=== PATIENT | male | born 1945 | race Caucasian/White ===

== ENCOUNTER 2021-01-17 17:44 | Inpatient (IN) | payer MEDICARE, SELFPAY ==
--- NOTE | ~2021-01-17 | CT_ITS ---
EXAMINATION: CT HEAD WITHOUT CONTRAST CLINICAL INFORMATION: Status post fall COMPARISON: None TECHNIQUE: Contiguous axial imaging was performed from the skull base to vertex without intravenous administration of contrast. This CT examination was performed using dose optimization techniques as appropriate, variously including the following: *Automated exposure control *Adjustment of mA and/or kV according to patient size (this includes techniques or standardized protocols for targeted exams where dose is matched to indication/reason for exam; i.e. extremities or head) *Use of iterative reconstruction technique DLP: 741 mGy-cm FINDINGS: There is no evidence of acute intracranial hemorrhage or territorial infarction. No abnormal mass effect or midline shift is seen. Glass to white matter differentiation is well preserved. No extra-axial fluid collections are identified. There is a mild global volume loss with proportionate dilatation of the ventricles and cortical sulci. Patchy low-attenuation changes are noted in the bilateral periventricular white matter, likely representing sequela of chronic microangiopathy. The patient is status post bilateral lens extraction. Osseous calvarium is intact. No evidence of significant calvarial soft tissue swelling or hematoma.. The mastoid air cells and visualized portions of the paranasal sinuses are well aerated. CT/CT head/brain wo con IMPRESSION: No evidence of acute intracranial abnormality. Specifically, there is no evidence of acute intracranial hemorrhage or acute territorial infarction. 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
--- NOTE | ~2021-01-17 | XR_ITS ---
EXAMINATION: XR CHEST CLINICAL INFORMATION: Syncope COMPARISON: 08/25/2015 TECHNIQUE: 2 AP views of the chest was obtained. FINDINGS: Diffuse coarse interstitial markings appear increased from the prior study 08/25/2015. No focal consolidation. No pleural effusion or pneumothorax. Cardiac silhouette remains enlarged. Sternal wires and mediastinal vascular clips are seen. Unchanged single lead pacer/AICD. XR/XR chest 1V IMPRESSION: Diffuse coarse interstitial markings are increased from prior study. These could reflect worsened bronchitis, pulmonary vascular congestion, or interstitial pneumonitis.
--- NOTE | ~2021-01-17 | NM_ITS ---
Myocardial perfusion study Indication: NSTEMI with prior ischemic cardiomyopathy to evaluate for myocardial infarction Technique: The patient was brought in for a Lexiscan perfusion study on 01/21/2021. Patient performed low-level exercise and was injected 0.4 mg of Lexiscan intravenously. Within a minute of injection, 25 mCi of sestamibi was given intravenously. Images were obtained using the SPECT gamma camera interlaced with the gating device. Images were obtained in supine position. Resting perfusion study was performed on 01/20/2021. Patient was administered 25 mCi of sestamibi intravenously at rest. Images were then obtained in supine position. Images obtained with and without CT attenuation. Total DLP 100 mGy-cm. Images were processed with the software and compared side to side in short axis, horizontal long axis and vertical long axis views. Findings: The stress perfusion study showed nonattenuated images show large area of absent uptake in the mid anterior, distal anterior and apex of the LV myocardium as well as severely reduced uptake in the basal anterior. There is also absent uptake in the basal and apical anteroseptal wall of the LV myocardium. Is also mildly to moderately reduced uptake in the inferior wall of the LV myocardium. Attenuation corrected images show a large area of absent mid, distal anterior, apex, distal lateral and basal anteroseptal wall of the LV myocardium. There is improved uptake in the mid inferior wall with mildly the basal inferior wall of the LV myocardium.. The gated study shows severely reduced LV systolic function with calculated LVEF of 25%. LV cavity is moderately dilated size. The gated study shows absent anterior and apical wall thickening and contraction of segments. Resting study shows marginally improved uptake in the basal anterior as well as septum of the LV myocardium. Gating at rest reveals anterior wall motion abnormality with ejection fraction at 25%. The findings are consistent with large area of possible infarct of the mid to distal anterior and apical wall of the LV myocardium involving the distal and basal anteroseptal wall of the LV myocardium with heidi-infarct ischemia. In LAD territory.. NM/NM clifford perf SPECT rest & str Impression: 1. 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 Gated LVEF is 25% 3. Transient ischemic dilatation present EKG nondiagnostic for ischemia
[2021-01-17 17:53] VITALS: BP 102/50; BP 99/67; PULSE 54; RESP 15; TEMP 36.6; O2SAT 99; BMI 29.5
--- NOTE | 2021-01-17 18:04 | ED_ITS ---
HPI - Syncope General Chief Complaint: Dizziness Stated Complaint: near syncope Time Seen by Provider: 01/17/21 18:04 Source: patient, family and EMS Limitations: no limitations History of Present Illness HPI narrative: Patient is 75 years old with history of cardiac bypass surgery AICD placed more than 10 years ago history of cardiomyopathy, CHF COPD, diabetes, peripheral vascular disease, hypertension, depression do not eat much today was feeling weak and tired while sitting patient felt a shock like feeling in the AICD hand iced the floor and had a syncope episode and next thing he was on the floor patient's [employer] NE[employer]AL[employer]ER was in the same room and she found him on the floor no significant head injury no other injuries patient denies any chest pain or shortness of breath Related Data Home Medications Medication Instructions Recorded Confirmed aspirin 1 tab PO QAM 01/17/21 01/17/21 clopidogrel 1 tab PO QAM 01/17/21 01/17/21 fluoxetine 1 cap PO QAM 01/17/21 01/17/21 metoprolol succinate 25 mg PO DAILY 01/17/21 01/17/21 rosuvastatin 1 tab PO QAM 01/17/21 01/17/21 Allergies Allergy/AdvReac Type Severity Reaction Status Date / Time No Known Allergies Allergy Unverified 04/24/20 15:47 [No Known Allergies*] Review of Systems Review of Systems: Constitutional : No Weight loss, No Fever, No Chills ENT/Mouth : No sore throat, No Rhinorrhea Eyes: No Eye Pain, No Swelling Cardiovascular : No Chest Pain, no palpitations Respiratory : No Cough, No Sputum, no shortness of breath Gastrointestinal : no Nausea, No Vomiting, No Diarrhea, No abdominal Pain, no black stools Genitourinary : No Dysuria, No Urinary Frequency Musculoskeletal : No joint pain, No Myalgias, No Joint Swelling Skin : No Skin Lesions, No rash Neuro : ++ Weakness, No Numbness, No Dizziness, No Headache Psych : No Anxiety/Panic, No Depression Heme/Lymph: No Bruising, No Lymphadenopathy Endocrine : No Polyuria, No Polydipsia All other systems reviewed and are negative [facility] Past Medical History Medical History (Updated 01/17/21 @ 23:32 by Ivan Martini MD) A-fib CHF (congestive heart failure) COPD (chronic obstructive pulmonary disease) Depression HTN (hypertension) with goal to be determined Peripheral vascular disease Surgical History (Updated 01/17/21 @ 18:53 by Ivan Martini MD) AICD (automatic cardioverter/defibrillator) present Hx of CABG Social History Social History Alcohol intake: never Patient Tobacco Use Status: Never used Tobacco Use of substances other than those prescribed or required for medical reasons: No Advance Directives: No Advance Directives Information Provided: No Physical Exam Vital Signs: Vital Signs: Last Vital Signs Temp 97.8 F 01/17/21 22:13 Pulse 73 01/17/21 22:13 Resp 20 01/17/21 22:13 BP 112/53 L 01/17/21 22:13 Pulse Ox 100 01/17/21 22:13 Oxygen Flow Rate 2 01/17/21 17:53 Body Mass Index 24.6 Appearance: Alert. Oriented X3. No acute distress. Eyes: PERRLA, No Nystagmus ENT: Pharynx normal. Oral Mucosa moist Neck: Normal inspection. Neck supple. CVS: irregular heart rate and rhythm. Pulses normal. Respiratory: No respiratory distress. Equal air entry bilateral, no wheezing/rales/rhonchi Abdomen: Soft and nontender. Bowel sounds are present, no mass palpable, no CVA tenderness Skin: Skin warm and dry. Normal skin color. Normal skin turgor. Extremities: No lower extremity edema. No calf tenderness Neuro: Oriented X 3. No motor deficit. No sensory deficit.No cerebellar signs , cranial nerves II-XII intact MDM - Syncope MDM Narrative Medical decision making narrative: Patient is syncope episode is firing of the AICD with new onset AFib in patient denied any chest pain initial troponin was 46.6 repeat 359.6 likely from AICD firing and AFib patient denies any chest pain case discussed with Dr. Benson orderly continue heparin drip for now Patient has significant deltoid are increase in troponin likely from AFib and shock received at home. Patient denies any chest pain. Will continue heparin drip for now orderly to follow Lab Data Attestation: I reviewed the patient's lab results. Result diagrams: 01/17/21 20:24 01/17/21 18:31 Labs: Lab Results 01/17/21 01/17/21 01/17/21 Range/Units 18:31 18:31 18:31 WBC 7.1 (4.8-10.8) X10*3/uL RBC 3.65 L (4.60-5.80) X10*6/uL Hgb 10.5 L (14.0-18.0) g/dl Hct 34.0 L (42-52) % MCV 93.2 (80-98) fL MCH 28.8 (27.0-33.0) pg MCHC 30.9 L (31.0-36.0) g/dl RDW 16.0 (11.0-16.0) % Plt Count 166 (160-400) X10*3/uL MPV 10.1 (9.4-12.4) fL Immature Gran % (Auto) 0.6 H (0.0-0.4) % Neut % (Auto) 73.9 H (45-73) % Lymph % (Auto) 12.8 L (20-40) % Ellis % (Auto) 9.7 (2-11) % Eos % (Auto) 2.4 (0-4) % Baso % (Auto) 0.6 (0-2) % Lymph # (Auto) 0.9 L (1.2-4.9) X10*3/uL Ellis # (Auto) 0.7 (0.1-1.2) X10*3/uL Eos # (Auto) 0.2 (0.0-0.4) X10*3/uL Baso # (Auto) 0.0 (0.0-0.2) X10*3/uL Abs Immat Gran (auto) 0.04 H (0.00-0.03) X10*3/uL Absolute Neuts (auto) 5.3 (2.0-8.3) X10*3/uL Absolute Nucleated RBC 0.020 H (0.0-0.012) X10*3/uL Nucleated RBC % (auto) 0.3 H (0.0-0.2) /100WBC PT 15.7 H (10.8-13.0) SEC INR 1.3 H (0.9-1.1) APTT 32.1 (24.1-38.0) SEC PTT (Heparin Protocol) (53-77.9) SEC Sodium 139 (135-145) mmol/L Potassium 4.3 (3.3-5.1) mmol/L Chloride 109 H (96-108) mmol/L Carbon Dioxide 21 L (22-29) mmol/L Anion Gap 13 (12-20) BUN 32 H (9-16) mg/dL Creatinine 1.78 H (0.5-1.4) mg/dL Estim Creat Clear Calc 38.6 Estimated GFR 37 Random Glucose 208 H (60-115) mg/dL Calcium 8.4 (8.4-10.2) mg/dL Total Bilirubin (0.0-1.0) mg/dL Direct Bilirubin (0.0-0.5) mg/dL AST (5-37) U/L ALT (0-40) U/L Alkaline Phosphatase (39-117) U/L Troponin I High Sens (<3.5-35.0) ng/L Total Protein (6.5-8.0) g/dL Albumin (3.5-5.0) g/dL Urine Color Urine Appearance Urine pH (5.0-8.0) Ur Specific [place] (1.005-1.025) Urine Protein (NEG-TRACE) MG/DL Urine Glucose (UA) (NEG) MG/DL Urine Ketones (NEG) MG/DL Urine Blood (NEG) Urine Nitrite (NEG) Ur Leukocyte Esterase (NEG) Urine RBC (0) /HPF Urine WBC (0-4) /HPF Ur Squamous Epith Cells /LPF Urine Bacteria /LPF COVID-19 ([facility]) (Negative) COVID-19 Clin Com 01/17/21 01/17/21 01/17/21 Range/Units 18:31 18:31 18:31 WBC (4.8-10.8) X10*3/uL RBC (4.60-5.80) X10*6/uL Hgb (14.0-18.0) g/dl Hct (42-52) % MCV (80-98) fL MCH (27.0-33.0) pg MCHC (31.0-36.0) g/dl RDW (11.0-16.0) % Plt Count (160-400) X10*3/uL MPV (9.4-12.4) fL Immature Gran % (Auto) (0.0-0.4) % Neut % (Auto) (45-73) % Lymph % (Auto) (20-40) % Ellis % (Auto) (2-11) % Eos % (Auto) (0-4) % Baso % (Auto) (0-2) % Lymph # (Auto) (1.2-4.9) X10*3/uL Ellis # (Auto) (0.1-1.2) X10*3/uL Eos # (Auto) (0.0-0.4) X10*3/uL Baso # (Auto) (0.0-0.2) X10*3/uL Abs Immat Gran (auto) (0.00-0.03) X10*3/uL Absolute Neuts (auto) (2.0-8.3) X10*3/uL Absolute Nucleated RBC (0.0-0.012) X10*3/uL Nucleated RBC % (auto) (0.0-0.2) /100WBC PT (10.8-13.0) SEC INR (0.9-1.1) APTT (24.1-38.0) SEC PTT (Heparin Protocol) (53-77.9) SEC Sodium (135-145) mmol/L Potassium (3.3-5.1) mmol/L Chloride (96-108) mmol/L Carbon Dioxide (22-29) mmol/L Anion Gap (12-20) BUN (9-16) mg/dL Creatinine (0.5-1.4) mg/dL Estim Creat Clear Calc Estimated GFR Random Glucose (60-115) mg/dL Calcium (8.4-10.2) mg/dL Total Bilirubin 0.6 (0.0-1.0) mg/dL Direct Bilirubin 0.4 (0.0-0.5) mg/dL AST 71 H (5-37) U/L ALT 44 H (0-40) U/L Alkaline Phosphatase 249 H (39-117) U/L Troponin I High Sens 46.6 H* (<3.5-35.0) ng/L Total Protein 7.1 (6.5-8.0) g/dL Albumin 3.5 (3.5-5.0) g/dL Urine Color Urine Appearance Urine pH (5.0-8.0) Ur Specific [place] (1.005-1.025) Urine Protein (NEG-TRACE) MG/DL Urine Glucose (UA) (NEG) MG/DL Urine Ketones (NEG) MG/DL Urine Blood (NEG) Urine Nitrite (NEG) Ur Leukocyte Esterase (NEG) Urine RBC (0) /HPF Urine WBC (0-4) /HPF Ur Squamous Epith Cells /LPF Urine Bacteria /LPF COVID-19 ([facility]) Negative (Negative) COVID-19 Clin Com See Note 01/17/21 01/17/21 01/17/21 Range/Units 18:42 20:24 20:24 WBC 8.6 (4.8-10.8) X10*3/uL RBC 3.63 L (4.60-5.80) X10*6/uL Hgb 10.5 L (14.0-18.0) g/dl Hct 33.6 L (42-52) % MCV 92.6 (80-98) fL MCH 28.9 (27.0-33.0) pg MCHC 31.3 (31.0-36.0) g/dl RDW 16.0 (11.0-16.0) % Plt Count 162 (160-400) X10*3/uL MPV 9.9 (9.4-12.4) fL Immature Gran % (Auto) (0.0-0.4) % Neut % (Auto) (45-73) % Lymph % (Auto) (20-40) % Ellis % (Auto) (2-11) % Eos % (Auto) (0-4) % Baso % (Auto) (0-2) % Lymph # (Auto) (1.2-4.9) X10*3/uL Ellis # (Auto) (0.1-1.2) X10*3/uL Eos # (Auto) (0.0-0.4) X10*3/uL Baso # (Auto) (0.0-0.2) X10*3/uL Abs Immat Gran (auto) (0.00-0.03) X10*3/uL Absolute Neuts (auto) (2.0-8.3) X10*3/uL Absolute Nucleated RBC 0.000 (0.0-0.012) X10*3/uL Nucleated RBC % (auto) 0.0 (0.0-0.2) /100WBC PT 15.8 H (10.8-13.0) SEC INR 1.3 H (0.9-1.1) APTT (24.1-38.0) SEC PTT (Heparin Protocol) 32.3 L (53-77.9) SEC Sodium (135-145) mmol/L Potassium (3.3-5.1) mmol/L Chloride (96-108) mmol/L Carbon Dioxide (22-29) mmol/L Anion Gap (12-20) BUN (9-16) mg/dL Creatinine (0.5-1.4) mg/dL Estim Creat Clear Calc Estimated GFR Random Glucose (60-115) mg/dL Calcium (8.4-10.2) mg/dL Total Bilirubin (0.0-1.0) mg/dL Direct Bilirubin (0.0-0.5) mg/dL AST (5-37) U/L ALT (0-40) U/L Alkaline Phosphatase (39-117) U/L Troponin I High Sens (<3.5-35.0) ng/L Total Protein (6.5-8.0) g/dL Albumin (3.5-5.0) g/dL Urine Color YELLOW Urine Appearance CLOUDY Urine pH 5.5 (5.0-8.0) Ur Specific [place] >= 1.030 H (1.005-1.025) Urine Protein 2+ H (NEG-TRACE) MG/DL Urine Glucose (UA) NEG (NEG) MG/DL Urine Ketones 5 (NEG) MG/DL Urine Blood NEG (NEG) Urine Nitrite NEG (NEG) Ur Leukocyte Esterase 1+ H (NEG) Urine RBC 0 (0) /HPF Urine WBC 10-14 H (0-4) /HPF Ur Squamous Epith Cells 1+ /LPF Urine Bacteria 1+ /LPF COVID-19 ([facility]) (Negative) COVID-19 Clin Com 01/17/21 Range/Units 21:05 WBC (4.8-10.8) X10*3/uL RBC (4.60-5.80) X10*6/uL Hgb (14.0-18.0) g/dl Hct (42-52) % MCV (80-98) fL MCH (27.0-33.0) pg MCHC (31.0-36.0) g/dl RDW (11.0-16.0) % Plt Count (160-400) X10*3/uL MPV (9.4-12.4) fL Immature Gran % (Auto) (0.0-0.4) % Neut % (Auto) (45-73) % Lymph % (Auto) (20-40) % Ellis % (Auto) (2-11) % Eos % (Auto) (0-4) % Baso % (Auto) (0-2) % Lymph # (Auto) (1.2-4.9) X10*3/uL Ellis # (Auto) (0.1-1.2) X10*3/uL Eos # (Auto) (0.0-0.4) X10*3/uL Baso # (Auto) (0.0-0.2) X10*3/uL Abs Immat Gran (auto) (0.00-0.03) X10*3/uL Absolute Neuts (auto) (2.0-8.3) X10*3/uL Absolute Nucleated RBC (0.0-0.012) X10*3/uL Nucleated RBC % (auto) (0.0-0.2) /100WBC PT (10.8-13.0) SEC INR (0.9-1.1) APTT (24.1-38.0) SEC PTT (Heparin Protocol) (53-77.9) SEC Sodium (135-145) mmol/L Potassium (3.3-5.1) mmol/L Chloride (96-108) mmol/L Carbon Dioxide (22-29) mmol/L Anion Gap (12-20) BUN (9-16) mg/dL Creatinine (0.5-1.4) mg/dL Estim Creat Clear Calc Estimated GFR Random Glucose (60-115) mg/dL Calcium (8.4-10.2) mg/dL Total Bilirubin (0.0-1.0) mg/dL Direct Bilirubin (0.0-0.5) mg/dL AST (5-37) U/L ALT (0-40) U/L Alkaline Phosphatase (39-117) U/L Troponin I High Sens 359.6 H* D (<3.5-35.0) ng/L Total Protein (6.5-8.0) g/dL Albumin (3.5-5.0) g/dL Urine Color Urine Appearance Urine pH (5.0-8.0) Ur Specific [place] (1.005-1.025) Urine Protein (NEG-TRACE) MG/DL Urine Glucose (UA) (NEG) MG/DL Urine Ketones (NEG) MG/DL Urine Blood (NEG) Urine Nitrite (NEG) Ur Leukocyte Esterase (NEG) Urine RBC (0) /HPF Urine WBC (0-4) /HPF Ur Squamous Epith Cells /LPF Urine Bacteria /LPF COVID-19 ([facility]) (Negative) COVID-19 Clin Com ECG Data Attestation: I personally reviewed and interpreted this ECG as follows: Interpretation: Atrial fibrillation heart rate 83 beats per minute incomplete left bundle-branch block nonspecific ST T wave changes no acute ischemia AFib is new Discharge Plan Discharge Clinical Impression: Non-STEMI (non-ST elevated myocardial infarction), Atrial fibrillation, new onset Syncope Qualifiers: Syncope type: unspecified Qualified Code(s): R55 - Syncope and collapse Patient Disposition: Admitted As Inpatient
--- NOTE | 2021-01-17 18:14 | ECG_ITS ---
Test Reason : nearsyncope Blood Pressure : / mmHG Vent. Rate : 083 BPM Atrial Rate : 084 BPM P-R Int : 000 ms QRS Dur : 110 ms QT Int : 428 ms P-R-T Axes : 000 -29 150 degrees QTc Int : 502 ms Atrial fibrillation Incomplete left bundle branch block T wave abnormality, consider lateral ischemia Prolonged QT Abnormal ECG When compared with ECG of 25-AUG-2015 18:17, Atrial fibrillation has replaced Sinus rhythm Incomplete left bundle branch block is now Present Referred By: Ivan Martini Electronically Signed By:JANUARY TOM MD
[2021-01-17 18:35] LABS: MANUAL DIFF FLAG NO
[2021-01-17 18:37] LABS: Basophils Percent Auto 0.6 % (0-2); Eosinophils Absolute Auto 0.2 X10*3/uL (0.0-0.4); Eosinophils Percent Auto 2.4 % (0-4); Hemoglobin 10.5 g/dl (14.0-18.0); Imm Gran Abs Auto 0.04 X10*3/uL (0.00-0.03); Imm Gran Pct Auto 0.6 % (0.0-0.4); Lymphocytes Absolute Auto 0.9 X10*3/uL (1.2-4.9); Lymphocytes Percent Auto 12.8 % (20-40); Mean Corpuscular HGB Conc 30.9 g/dl (31.0-36.0); Mean Corpuscular Hemoglobin 28.8 pg (27.0-33.0); Mean Corpuscular Volume 93.2 fL (80-98); Mean Platelet Volume 10.1 fL (9.4-12.4); Monocytes Absolute Auto 0.7 X10*3/uL (0.1-1.2); Monocytes Percent Auto 9.7 % (2-11); NRBC Pct Auto 0.3 /100WBC (0.0-0.2); Neutrophils Absolute Auto 5.3 X10*3/uL (2.0-8.3); Neutrophils Percent Auto 73.9 % (45-73); Platelet Count 166 X10*3/uL (160-400); Red Blood Count 3.65 X10*6/uL (4.60-5.80); White Blood Count 7.1 X10*3/uL (4.8-10.8)
[2021-01-17 18:43] LABS: INTERNATIONAL NORM RATIO 1.3 (0.9-1.1); Prothrombin Time 15.7 SEC (10.8-13.0)
[2021-01-17 18:45] LABS: Partial Thromboplastin Time 32.1 SEC (24.1-38.0)
[2021-01-17 18:50] LABS: Appearance Urine CLOUDY; Color Urine YELLOW; Glucose Urine UA NEG (NEG); Leukocyte Esterase Urine 1+ (NEG); Nitrite Urine NEG (NEG); PH 5.5 (5.0-8.0); Specific Gravity - Urine >= 1.030 (1.005-1.025); UACC Culture Trigger YES; Urine Blood NEG (NEG); Urine Ketones 5 MG/DL (NEG); Urine Protein 2+ MG/DL (NEG-TRACE)
[2021-01-17 18:52] LABS: COVID-19 Test Negative (Negative)
[2021-01-17 18:58] LABS: RBC Urine 0 /HPF (0)
[2021-01-17 18:59] LABS: Bacteria Urine 1+ /LPF; Squamous Epithelial Cell Urine 1+ /LPF
[2021-01-17 19:07] LABS: Anion Gap 13 (12-20); Blood Urea Nitrogen 32 mg/dL (9-16); Calcium 8.4 mg/dL (8.4-10.2); Carbon Dioxide 21 mmol/L (22-29); Chloride 109 mmol/L (96-108); Creatinine Clr Calc Pharmacy 38.6; Estimated Glomerular Filt Rate 37; Glucose Random 208 mg/dL (60-115); Potassium 4.3 mmol/L (3.3-5.1); Sodium 139 mmol/L (135-145)
[2021-01-17 19:09] LABS: Alanine Aminotransferase 44 U/L (0-40); Albumin Level 3.5 g/dL (3.5-5.0); Alkaline Phosphatase 249 U/L (39-117); Aspartate Amino Transferase 71 U/L (5-37); Bilirubin Direct 0.4 mg/dL (0.0-0.5); Bilirubin Total 0.6 mg/dL (0.0-1.0); Total Protein 7.1 g/dL (6.5-8.0)
[2021-01-17 19:15] LABS: Troponin-I High Sensitivity 46.6 ng/L (<3.5-35.0)
[2021-01-17 20:32] LABS: Hematocrit 33.6 % (42-52); Hemoglobin 10.5 g/dl (14.0-18.0); Mean Corpuscular HGB Conc 31.3 g/dl (31.0-36.0); Mean Corpuscular Hemoglobin 28.9 pg (27.0-33.0); Mean Corpuscular Volume 92.6 fL (80-98); Mean Platelet Volume 9.9 fL (9.4-12.4); Platelet Count 162 X10*3/uL (160-400); Red Blood Count 3.63 X10*6/uL (4.60-5.80); White Blood Count 8.6 X10*3/uL (4.8-10.8)
[2021-01-17 20:37] VITALS: BMI 24.6
[2021-01-17] MEDS: Heparin Sodium,Porcine 5,000 UNIT/ML VIAL 5000 UNIT IVPUSH (20:37)
[2021-01-17 20:39] LABS: INTERNATIONAL NORM RATIO 1.3 (0.9-1.1); Prothrombin Time 15.8 SEC (10.8-13.0)
[2021-01-17] MEDS: Heparin Sodium,Porcine/1/2NS 25,000 UNIT/250 ML IV.SOLN 10.89 UNIT IVCONT (20:39)
[2021-01-17 20:41] LABS: PTT Heparin Drip 32.3 SEC (53-77.9)
[2021-01-17 20:58] VITALS: BP 133/66; PULSE 90; RESP 22; O2SAT 99
[2021-01-17 21:55] LABS: Troponin-I High Sensitivity 359.6 ng/L (<3.5-35.0)
--- NOTE | 2021-01-17 22:06 | ECG_ITS ---
Test Reason : ELEVATED TROP Blood Pressure : / mmHG Vent. Rate : 073 BPM Atrial Rate : 073 BPM P-R Int : 232 ms QRS Dur : 114 ms QT Int : 446 ms P-R-T Axes : 095 -26 160 degrees QTc Int : 491 ms Sinus rhythm with 1st degree A-V block with Premature atrial complexes Incomplete left bundle branch block T wave abnormality, consider lateral ischemia Prolonged QT Abnormal ECG When compared with ECG of 17-JAN-2021 18:25, Sinus rhythm has replaced Atrial fibrillation Referred By: Ivan Martini Electronically Signed By:JANUARY TOM MD
[2021-01-17 22:13] VITALS: BP 112/53; PULSE 73; RESP 20; TEMP 36.6; O2SAT 100
[2021-01-18] VITALS: BP 130/65; PULSE 73; RESP 16; O2SAT 96
--- NOTE | 2021-01-18 | ECG_ITS ---
Test Reason : NSTEMI Blood Pressure : / mmHG Vent. Rate : 070 BPM Atrial Rate : 070 BPM P-R Int : 000 ms QRS Dur : 114 ms QT Int : 450 ms P-R-T Axes : 000 -26 134 degrees QTc Int : 486 ms Normal sinus rhythm Incomplete left bundle branch block Abnormal ECG When compared with ECG of 17-JAN-2021 22:10, No significant changes seen Referred By: Sathish Tarango Electronically Signed By:ROSA SYED
--- NOTE | 2021-01-18 00:09 | PC.NURSE ---
heparin drip is running at this time at 12units/kg per hour per protocol. no distress noted. asking for clear liquids. awaiting bed assignment.
--- NOTE | 2021-01-18 00:37 | PM.IMHP ---
History of Present Illness Date of Service: 01/18/21 Chief Complaint: AICD shock 75-year-old male with a past medical history of hypertension, hyperlipidemia, CAD status post CABG, history of AICD presented to the hospital with a chief complaint of shock from AICD. Patient mentioned that around 2:00 p.m. he had an episode of sharp like sensation on his left side of the chest; subsequently had an episode of dizziness. And almost felt like he had a fainting attack but did not lose consciousness. Denies any headaches numbness tingling. Denied any chest pain. Denies any GI or symptoms. Patient denied any chest pain at the time of my interview. Review of all other systems is negative except mentioned above ER course: Per ER team patient's EKG showed new onset AFib. Troponin elevated. Discussed with Dr. benson who recommended admission to the hospital to start the patient on heparin drip. Did not recommend any transfer at this point. [facility] Medical History A-fib CHF (congestive heart failure) COPD (chronic obstructive pulmonary disease) Depression HTN (hypertension) with goal to be determined Peripheral vascular disease Surgical History AICD (automatic cardioverter/defibrillator) present Hx of CABG Social History Alcohol intake: never Patient Tobacco Use Status: Never used Tobacco Use of substances other than those prescribed or required for medical reasons: No Advance Directives: No Advance Directives Information Provided: No Meds Allergies Allergy/AdvReac Type Severity Reaction Status Date / Time No Known Allergies Allergy Unverified 04/24/20 15:47 [No Known Allergies*] Active Medications: Current Medications Generic Name Dose Route Start Last Admin Trade Name Freq PRN Reason Stop Dose Admin Acetaminophen 650 mg 01/18/21 00:31 Acetaminophen 325 Mg Tablet PO Q6H PRN Pain, Mild (Pain Scale 1-3) Aspirin 81 mg 01/18/21 00:45 Aspirin Enteric Coated 81 Mg Tablet.Dr LYN LERMA Clopidogrel Bisulfate 75 mg 01/18/21 00:45 Clopidogrel Bisulfate 75 Mg Tablet PO GORDON LERMA Docusate Sodium 100 mg 01/18/21 09:00 Docusate Sodium 100 Mg Capsule PO BID [facility] Fluoxetine HCl 20 mg 01/18/21 00:45 Fluoxetine Hcl 20 Mg Capsule PO QAM [facility] Heparin Sodium (Porcine) 3,600 unit 01/17/21 20:00 Heparin Sodium,Porcine 5,000 Unit/Ml Vial 40 unit/kg (3600 unit) IVPUSH BOLUS PRN 40 unit/kg - Heparin Protocol Heparin Sodium (Porcine) 7,300 unit 01/17/21 20:00 Heparin Sodium,Porcine 5,000 Unit/Ml Vial 80 unit/kg (7300 unit) IVPUSH BOLUS PRN 80 unit/kg - Heparin Protocol Heparin Sodium (Porcine) 3,000 unit 01/18/21 00:31 Heparin Sodium,Porcine 5,000 Unit/Ml Vial 40 unit/kg (3000 unit) IVPUSH BOLUS PRN 40 unit/kg - Heparin Protocol Heparin Sodium (Porcine) 6,100 unit 01/18/21 00:31 Heparin Sodium,Porcine 5,000 Unit/Ml Vial 80 unit/kg (6100 unit) IVPUSH BOLUS PRN 80 unit/kg - Heparin Protocol Heparin Sodium/Sodium Chloride 25,000 unit in 250 mls @ 0 mls/hr 01/17/21 20:00 01/17/21 20:39 IVCONT 12 units/kg/hr .Q0M [facility] 10.89 mls/hr Administration Protocol Per Protocol Dextrose/Sodium Chloride 1,000 mls @ 50 mls/hr 01/18/21 00:45 D51/2ns IVCONT .Q20H [place] Heparin Sodium/Sodium Chloride 25,000 unit in 250 mls @ 10.612 mls/hr 01/18/21 00:45 IVCONT .[id number] [facility] Protocol 14 UNITS/KG/HR Magnesium Hydroxide 30 ml 01/18/21 00:31 Milk Of Magnesia 30 Ml Oral.Susp PO DAILY PRN Constipation Metoprolol Succinate 25 mg 01/18/21 09:00 Metoprolol Succinate Er 25 Mg Tab.Er.24h PO DAILY [facility] Protocol Nitroglycerin 0.4 mg 01/18/21 00:31 Nitroglycerin 0.4 Mg Tab.Subl SUBLINGUAL Q5M PRN Chest Pain Non-Formulary Medication 1 tab 01/18/21 00:45 Rosuvastatin PO QAM [facility] Sodium Chloride 3 ml 01/18/21 08:00 0.9 % Sodium Chloride Flush 3 Ml Syringe IVFLUSH QSHIFT [facility] Home Medications Medication Instructions Recorded Confirmed Last Taken Type aspirin 1 tab PO QAM 01/17/21 01/17/21 Unknown History clopidogrel 1 tab PO QAM 01/17/21 01/17/21 Unknown History fluoxetine 1 cap PO QAM 01/17/21 01/17/21 Unknown History metoprolol succinate 25 mg PO DAILY 01/17/21 01/17/21 Unknown History rosuvastatin 1 tab PO QAM 01/17/21 01/17/21 Unknown History Physical Exam Vital Signs and Narrative: Vital Signs: Last Vital Signs Temp 97.8 F 01/17/21 22:13 Pulse 73 01/18/21 00:00 Resp 16 01/18/21 00:00 BP 130/65 01/18/21 00:00 Pulse Ox 96 01/18/21 00:00 Oxygen Flow Rate 2 01/17/21 17:53 Body Mass Index 24.6 Gen: Appears be in no acute distress HEENT: NCAT, Moist mucosa. Pulmonary: Vesicular breath sounds, fair air entry CVS: Normal S1-S2 Abdomen: BS+, Soft, Nontender Extremities: Warm well perfused Neuro: Alert and awake. Results Labs CBC and Chem 7: 01/18/21 06:44 01/18/21 02:35 Labs: Laboratory Results - last 24 hr 01/17/21 01/17/21 01/17/21 18:31 18:31 18:31 MCV 93.2 MCH 28.8 MCHC 30.9 L RDW 16.0 Plt Count 166 MPV 10.1 Immature Gran % (Auto) 0.6 H Neut % (Auto) 73.9 H Lymph % (Auto) 12.8 L [place] % (Auto) 9.7 Eos % (Auto) 2.4 Baso % (Auto) 0.6 Lymph # (Auto) 0.9 L [place] # (Auto) 0.7 Eos # (Auto) 0.2 Baso # (Auto) 0.0 Abs Immat Gran (auto) 0.04 H Absolute Neuts (auto) 5.3 Absolute Nucleated RBC 0.020 H Nucleated RBC % (auto) 0.3 H PT 15.7 H INR 1.3 H APTT 32.1 PTT (Heparin Protocol) Anion Gap 13 Estim Creat Clear Calc 38.6 Estimated GFR 37 Random Glucose 208 H Calcium 8.4 Total Bilirubin Direct Bilirubin AST ALT Alkaline Phosphatase Troponin I High Sens Total Protein Albumin Urine Color Urine Appearance Urine pH Ur Specific [place] Urine Protein Urine Glucose (UA) Urine Ketones Urine Blood Urine Nitrite Ur Leukocyte Esterase Urine RBC Urine WBC Ur Squamous Epith Cells Urine Bacteria COVID-19 ([facility]) COVID-19 Clin Com 01/17/21 01/17/21 01/17/21 18:31 18:31 18:31 MCV MCH MCHC RDW Plt Count MPV Immature Gran % (Auto) Neut % (Auto) Lymph % (Auto) [place] % (Auto) Eos % (Auto) Baso % (Auto) Lymph # (Auto) [place] # (Auto) Eos # (Auto) Baso # (Auto) Abs Immat Gran (auto) Absolute Neuts (auto) Absolute Nucleated RBC Nucleated RBC % (auto) PT INR APTT PTT (Heparin Protocol) Anion Gap Estim Creat Clear Calc Estimated GFR Random Glucose Calcium Total Bilirubin 0.6 Direct Bilirubin 0.4 AST 71 H ALT 44 H Alkaline Phosphatase 249 H Troponin I High Sens 46.6 H* Total Protein 7.1 Albumin 3.5 Urine Color Urine Appearance Urine pH Ur Specific [place] Urine Protein Urine Glucose (UA) Urine Ketones Urine Blood Urine Nitrite Ur Leukocyte Esterase Urine RBC Urine WBC Ur Squamous Epith Cells Urine Bacteria COVID-19 ([facility]) Negative COVID-19 Clin Com See Note 01/17/21 01/17/21 01/17/21 18:42 20:24 20:24 MCV 92.6 MCH 28.9 MCHC 31.3 RDW 16.0 Plt Count 162 MPV 9.9 Immature Gran % (Auto) Neut % (Auto) Lymph % (Auto) [place] % (Auto) Eos % (Auto) Baso % (Auto) Lymph # (Auto) [place] # (Auto) Eos # (Auto) Baso # (Auto) Abs Immat Gran (auto) Absolute Neuts (auto) Absolute Nucleated RBC 0.000 Nucleated RBC % (auto) 0.0 PT 15.8 H INR 1.3 H APTT PTT (Heparin Protocol) 32.3 L Anion Gap Estim Creat Clear Calc Estimated GFR Random Glucose Calcium Total Bilirubin Direct Bilirubin AST ALT Alkaline Phosphatase Troponin I High Sens Total Protein Albumin Urine Color YELLOW Urine Appearance CLOUDY Urine pH 5.5 Ur Specific Mc[place]ky >= 1.030 H Urine Protein 2+ H Urine Glucose (UA) NEG Urine Ketones 5 Urine Blood NEG Urine Nitrite NEG Ur Leukocyte Esterase 1+ H Urine RBC 0 Urine WBC 10-14 H Ur Squamous Epith Cells 1+ Urine Bacteria 1+ COVID-19 ([facility]) COVID-19 Clin Com 01/17/21 21:05 MCV MCH MCHC RDW Plt Count MPV Immature Gran % (Auto) Neut % (Auto) Lymph % (Auto) [place] % (Auto) Eos % (Auto) Baso % (Auto) Lymph # (Auto) [place] # (Auto) Eos # (Auto) Baso # (Auto) Abs Immat Gran (auto) Absolute Neuts (auto) Absolute Nucleated RBC Nucleated RBC % (auto) PT INR APTT PTT (Heparin Protocol) Anion Gap Estim Creat Clear Calc Estimated GFR Random Glucose Calcium Total Bilirubin Direct Bilirubin AST ALT Alkaline Phosphatase Troponin I High Sens 359.6 H* D Total Protein Albumin Urine Color Urine Appearance Urine pH Ur Specific [place] Urine Protein Urine Glucose (UA) Urine Ketones Urine Blood Urine Nitrite Ur Leukocyte Esterase Urine RBC Urine WBC Ur Squamous Epith Cells Urine Bacteria COVID-19 ([facility]) COVID-19 Clin Com Imaging Radiologist's Impressions: Impressions Chest X-Ray 01/17/21 18:15 IMPRESSION: Diffuse coarse interstitial markings are increased from prior study. These could reflect worsened bronchitis, pulmonary vascular congestion, or interstitial pneumonitis. Head CT 01/17/21 18:49 IMPRESSION: No evidence of acute intracranial abnormality. Specifically, there is no evidence of acute intracranial hemorrhage or acute territorial infarction. 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 Assessment and Plan (1) Non-STEMI (non-ST elevated myocardial infarction): Status: Acute 75-year-old male with a past medical history of hypertension, hyperlipidemia, CAD status post CABG, history of AICD presented to the hospital with a chief complaint of shock from AICD. Noted to have new onset AFib and elevated troponins. New onset AFib: Currently rate controlled. Continue home metoprolol. Will obtain echocardiogram. Will also check TSH. NSTEMI: patient currently denies any chest pain. Patient troponins elevated. Notified Dr. benson from Cardiology. Continue heparin drip. Hypertension/hyperlipidemia/CAD: Continue home medications Code status: Full code
[2021-01-18] MEDS: Dextrose 5 % and 0.45 % NaCl 1,000 ML 50 ML IVCONT ×2 (01:14→19:24)
[2021-01-18 02:00] VITALS: BP 97/56; PULSE 75; RESP 16; TEMP 36.6; O2SAT 97
[2021-01-18 02:41] LABS: MANUAL DIFF FLAG NO
[2021-01-18 02:42] LABS: Basophils Percent Auto 0.4 % (0-2); Eosinophils Absolute Auto 0.2 X10*3/uL (0.0-0.4); Eosinophils Percent Auto 2.1 % (0-4); Hematocrit 32.8 % (42-52); Hemoglobin 10.2 g/dl (14.0-18.0); Imm Gran Abs Auto 0.02 X10*3/uL (0.00-0.03); Imm Gran Pct Auto 0.3 % (0.0-0.4); Lymphocytes Absolute Auto 1.6 X10*3/uL (1.2-4.9); Lymphocytes Percent Auto 20.1 % (20-40); Mean Corpuscular HGB Conc 31.1 g/dl (31.0-36.0); Mean Corpuscular Hemoglobin 28.6 pg (27.0-33.0); Mean Corpuscular Volume 91.9 fL (80-98); Mean Platelet Volume 10.1 fL (9.4-12.4); Monocytes Absolute Auto 0.7 X10*3/uL (0.1-1.2); NRBC Pct Auto 0.3 /100WBC (0.0-0.2); Neutrophils Absolute Auto 5.3 X10*3/uL (2.0-8.3); Neutrophils Percent Auto 68.1 % (45-73); Platelet Count 160 X10*3/uL (160-400); Red Blood Count 3.57 X10*6/uL (4.60-5.80); White Blood Count 7.8 X10*3/uL (4.8-10.8)
[2021-01-18 02:49] LABS: INTERNATIONAL NORM RATIO 1.4 (0.9-1.1); Prothrombin Time 16.7 SEC (10.8-13.0)
--- NOTE | 2021-01-18 03:04 | PC.NURSE ---
PATIENT HAVING A CRITICAL PTT HD, PATIENT IS ALERT AND NEUROS WITHIN NORMAL LIMITS, MOVING ALL EXTREMITIES, DENIES HEADACHE OR CHANGES TO VISION. HOSPITALIST CALLED AND MADE AWARE, PLAN FOR LAB DRAWS EVERY HOUR UNTIL LESS THAN 93 PER PROTOCOL.
[2021-01-18 03:05] LABS: PTT Heparin Drip 162.8 SEC (53-77.9)
[2021-01-18 04:10] VITALS: BP 122/64; PULSE 75; RESP 16; O2SAT 97
[2021-01-18 04:13] LABS: Anion Gap 16 (12-20); Blood Urea Nitrogen 38 mg/dL (9-16); Calcium 8.3 mg/dL (8.4-10.2); Carbon Dioxide 18 mmol/L (22-29); Chloride 110 mmol/L (96-108); Creatinine Clr Calc Pharmacy 32.7; Estimated Glomerular Filt Rate 35; Glucose Random 194 mg/dL (60-115); Potassium 4.6 mmol/L (3.3-5.1); Sodium 139 mmol/L (135-145)
[2021-01-18 04:18] LABS: PTT Heparin Drip 121.9 SEC (53-77.9)
--- NOTE | 2021-01-18 04:22 | PC.NURSE ---
CONTINUING TO HOLD HEPARIN DRIP PER PROTOCOL UNTIL PTT HD IS 93. PATIENT NEUROS ARE INTACT, NO CHANGES TO VISION, INDUSTRIAL SAFETY AND HEALTH MANAGER AT BEDSIDE WITH THIS RN EXPLAINING WHAT THE PLAN OF CARE IS FOR REPEAT BLOOD DRAWS AND CLOSE MONITORING.
[2021-01-18 07:18] LABS: INTERNATIONAL NORM RATIO 1.3 (0.9-1.1); Prothrombin Time 15.8 SEC (10.8-13.0)
[2021-01-18 07:25] LABS: Hematocrit 34.3 % (42-52); Hemoglobin 10.6 g/dl (14.0-18.0); Mean Corpuscular HGB Conc 30.9 g/dl (31.0-36.0); Mean Corpuscular Hemoglobin 28.8 pg (27.0-33.0); Mean Corpuscular Volume 93.2 fL (80-98); Mean Platelet Volume 11.1 fL (9.4-12.4); NRBC Pct Auto 0.4 /100WBC (0.0-0.2); Platelet Count 160 X10*3/uL (160-400); Red Blood Count 3.68 X10*6/uL (4.60-5.80); Red Cell Distribution Width 16.1 % (11.0-16.0); White Blood Count 7.6 X10*3/uL (4.8-10.8)
[2021-01-18 07:40] LABS: Magnesium 1.7 mg/dL (1.6-2.6)
[2021-01-18 08:50] VITALS: BP 122/64; PULSE 75
[2021-01-18] MEDS: Atorvastatin Calcium 80 MG TABLET PO (08:50)
[2021-01-18] MEDS: Docusate Sodium 100 MG CAPSULE PO ×2 (08:50→22:16)
[2021-01-18] MEDS: Metoprolol Succinate ER 25 MG TAB.ER.24H PO (08:50)
[2021-01-18] MEDS: FLUoxetine HCl 20 MG CAPSULE PO (08:50)
[2021-01-18] MEDS: Aspirin Enteric Coated 81 MG TABLET.DR PO (08:50)
[2021-01-18] MEDS: Clopidogrel Bisulfate 75 MG TABLET PO (08:50)
[2021-01-18 09:37] LABS: Troponin-I High Sensitivity 900.7 ng/L (<3.5-35.0)
--- NOTE | 2021-01-18 10:06 | PM.CNCAR ---
History of Present Illness History of Present Illness Date of Service: 01/18/21 Requesting physician: Delta Cruz Consult reason: atrial fibrillation, myocardial infarction and other (Syncope, ICD discharge,) Chief complaint: NSTEMI Narrative: I was requested to see Amor in cardiology consultation today for syncope, elevated troponins and suspected ICD discharge and new onset atrial fibrillation. History was obtained with help of his significant other who is not a family member not healthcare proxy about who takes care of his day-to-day affairs at home, helping with history. Yesterday he was at home patient complained of some abdominal shaking feeling associated with palpitations and not feeling well and subsequently syncopized. He also reported an ICD discharge prior to syncopizing. For the last 3-4 days the significant other has been saying that he has been having some new like chest pain. This pain is very dissimilar to his myocardial infarction pain however this is very difficult to determine from the patient. Patient has also been mostly with very limited exercise capacity over the last 5-6 months. He does get short of breath. Also as per the significant other he has been having poor appetite and nausea and vomiting after eating. Patient does not know much about his past medical history. He had a coronary artery bypass grafting more than 15 16 years ago. He also has had a defibrillator since 2002. He says has been checked by Cardiology, however is not sure when the last time it was checked. Probably not in the pandemic.. No clear history of atrial fibrillation in the past however this is again very difficult to a certain. He has been getting his home meds. He has rising troponin. He also has elevated creatinine but this appears to be more chronic. He is in rate control atrial fibrillation. At home he is in dual antiplatelet therapy for unclear reasons. Also on metoprolol and rosuvastatin. Currently is getting IV heparin, dual antiplatelet therapy, atorvastatin and metoprolol. Currently denies any cardiovascular symptoms. Review of Systems Constitutional: Constitutional: Reports lethargy, Reports poor appetite and Reports weakness Cardiovascular: Cardiovascular: Denies chest pain with activity, Reports Loss of Consciousness, Reports dyspnea on exertion and Denies orthopnea Respiratory: Respiratory: Reports no additional respiratory complaints and Reports dyspnea on exertion Gastrointestinal: Gastrointestinal: Reports vomiting Musculoskeletal: Musculoskeletal: Reports no additional musculoskeletal complaints Neurologic: Reports weakness Psychiatric: Psychiatric: Reports no additional psychiatric complaints Endocrine: Endocrine: Reports no additional endocrine complaints PMFSH Past Medical History Medical History A-fib CHF (congestive heart failure) COPD (chronic obstructive pulmonary disease) Depression HTN (hypertension) with goal to be determined Peripheral vascular disease Surgical History Surgical History AICD (automatic cardioverter/defibrillator) present Hx of CABG Social History Social History Alcohol intake: never Patient Tobacco Use Status: Never used Tobacco Use of substances other than those prescribed or required for medical reasons: No Advance Directives: No Advance Directives Information Provided: No Meds Allergies Allergy/AdvReac Type Severity Reaction Status Date / Time No Known Allergies Allergy Unverified 04/24/20 15:47 [No Known Allergies*] Active Medications: Current Medications Generic Name Dose Route Start Last Admin Trade Name Freq PRN Reason Stop Dose Admin Acetaminophen 650 mg 01/18/21 00:31 Acetaminophen 325 Mg Tablet PO Q6H PRN Pain, Mild (Pain Scale 1-3) Aspirin 81 mg 01/18/21 09:00 01/18/21 08:50 Aspirin Enteric Coated 81 Mg Tablet.Dr PO 81 mg DAILY FLORENTIN Administration Atorvastatin Calcium 80 mg 01/18/21 09:00 01/18/21 08:50 Atorvastatin Calcium 80 Mg Tablet PO 80 mg DAILY FLORENTIN Administration Clopidogrel Bisulfate 75 mg 01/18/21 09:00 01/18/21 08:50 Clopidogrel Bisulfate 75 Mg Tablet PO 75 mg DAILY FLORENTIN Administration Docusate Sodium 100 mg 01/18/21 09:00 01/18/21 08:50 Docusate Sodium 100 Mg Capsule PO 100 mg BID FLORENTIN Administration Fluoxetine HCl 20 mg 01/18/21 09:00 01/18/21 08:50 Fluoxetine Hcl 20 Mg Capsule PO 20 mg DAILY FLORENTIN Administration Heparin Sodium (Porcine) 3,600 unit 01/17/21 20:00 Heparin Sodium,Porcine 5,000 Unit/Ml Vial 40 unit/kg (3600 unit) IVPUSH BOLUS PRN 40 unit/kg - Heparin Protocol Heparin Sodium (Porcine) 7,300 unit 01/17/21 20:00 Heparin Sodium,Porcine 5,000 Unit/Ml Vial 80 unit/kg (7300 unit) IVPUSH BOLUS PRN 80 unit/kg - Heparin Protocol Heparin Sodium (Porcine) 3,000 unit 01/18/21 00:31 Heparin Sodium,Porcine 5,000 Unit/Ml Vial 40 unit/kg (3000 unit) IVPUSH BOLUS PRN 40 unit/kg - Heparin Protocol Heparin Sodium (Porcine) 6,100 unit 01/18/21 00:31 Heparin Sodium,Porcine 5,000 Unit/Ml Vial 80 unit/kg (6100 unit) IVPUSH BOLUS PRN 80 unit/kg - Heparin Protocol Heparin Sodium/Sodium Chloride 25,000 unit in 250 mls @ 0 mls/hr 01/17/21 20:00 01/18/21 05:46 IVCONT 8 units/kg/hr .Q0M FLORENTIN 7.26 mls/hr Titration Protocol Per Protocol Dextrose/Sodium Chloride 1,000 mls @ 50 mls/hr 01/18/21 00:45 01/18/21 01:14 D51/2ns IVCONT 50 mls/hr .Q20H FLORENTIN Administration Heparin Sodium/Sodium Chloride 25,000 unit in 250 mls @ 10.612 mls/hr 01/18/21 00:45 01/18/21 01:15 IVCONT Not Given .[id number] FLORENTIN Protocol 14 UNITS/KG/HR Magnesium Hydroxide 30 ml 01/18/21 00:31 Milk Of Magnesia 30 Ml Oral.Susp PO DAILY PRN Constipation Metoprolol Succinate 25 mg 01/18/21 09:00 01/18/21 08:50 Metoprolol Succinate Er 25 Mg Tab.Er.24h PO 25 mg DAILY FLORENTIN Administration Protocol Nitroglycerin 0.4 mg 01/18/21 00:31 Nitroglycerin 0.4 Mg Tab.Subl SUBLINGUAL Q5M PRN Chest Pain Sodium Chloride 3 ml 01/18/21 08:00 01/18/21 07:46 0.9 % Sodium Chloride Flush 3 Ml Syringe IVFLUSH Not Given QSHIFT [facility] Home Medications Medication Instructions Recorded Confirmed Last Taken Type aspirin 1 tab PO QAM 01/17/21 01/17/21 Unknown History clopidogrel 1 tab PO QAM 01/17/21 01/17/21 Unknown History fluoxetine 1 cap PO QAM 01/17/21 01/17/21 Unknown History metoprolol succinate 25 mg PO DAILY 01/17/21 01/17/21 Unknown History rosuvastatin 1 tab PO QAM 01/17/21 01/17/21 Unknown History Physical Exam Vital Signs: Vital Signs: Last Vital Signs Temp 97.9 F 01/18/21 02:00 Pulse 75 01/18/21 08:50 Resp 16 01/18/21 04:10 BP 122/64 01/18/21 08:50 Pulse Ox 97 01/18/21 04:10 Oxygen Flow Rate 2 01/17/21 17:53 Body Mass Index 24.6 Const: General: cooperative, no acute distress, alert, awake, tired appearing and other (Disheveled) Nutritional Appearance: average body habitus HENMT: Head: Yes normocephalic and Yes atraumatic Neck: Neck: Yes trachea midline, Yes supple and Yes no JVD Resp: Effort & Inspection: normal respiratory effort Auscultation: clear to auscultation bilaterally Cardio: Jugular venous distension: no JVD Palpation: abnormal PMI displaced PMI Rhythm: abnormal rhythm irregularly irregular Heart sounds: S1 normal heart sound present, S2 normal heart sound present, no click, no gallops and no murmurs GI: Auscultation: normal bowel sounds Skin: General skin exam: no rashes or lesions noted Neuro: General: moves all extremities Extrem: General: Yes no clubbing, cyanosis or edema Results Labs and Meds Result diagrams: 01/18/21 06:44 01/18/21 02:35 Lab results: Laboratory Results - last 24 hr 01/17/21 01/17/21 01/17/21 18:31 18:31 18:31 WBC 7.1 RBC 3.65 L Hgb 10.5 L Hct 34.0 L MCV 93.2 MCH 28.8 MCHC 30.9 L RDW 16.0 Plt Count 166 MPV 10.1 Immature Gran % (Auto) 0.6 H Neut % (Auto) 73.9 H Lymph % (Auto) 12.8 L [place] % (Auto) 9.7 Eos % (Auto) 2.4 Baso % (Auto) 0.6 Lymph # (Auto) 0.9 L [place] # (Auto) 0.7 Eos # (Auto) 0.2 Baso # (Auto) 0.0 Abs Immat Gran (auto) 0.04 H Absolute Neuts (auto) 5.3 Absolute Nucleated RBC 0.020 H Nucleated RBC % (auto) 0.3 H PT 15.7 H INR 1.3 H APTT 32.1 PTT (Heparin Protocol) Sodium 139 Potassium 4.3 Chloride 109 H Carbon Dioxide 21 L Anion Gap 13 BUN 32 H Creatinine 1.78 H Estim Creat Clear Calc 38.6 Estimated GFR 37 Random Glucose 208 H Calcium 8.4 Magnesium Total Bilirubin Direct Bilirubin AST ALT Alkaline Phosphatase Troponin I High Sens Total Protein Albumin Urine Color Urine Appearance Urine pH Ur Specific [place] Urine Protein Urine Glucose (UA) Urine Ketones Urine Blood Urine Nitrite Ur Leukocyte Esterase Urine RBC Urine WBC Ur Squamous Epith Cells Urine Bacteria COVID-19 ([facility]) COVID-19 Clin Com 01/17/21 01/17/21 01/17/21 18:31 18:31 18:31 WBC RBC Hgb Hct MCV MCH MCHC RDW Plt Count MPV Immature Gran % (Auto) Neut % (Auto) Lymph % (Auto) [place] % (Auto) Eos % (Auto) Baso % (Auto) Lymph # (Auto) [place] # (Auto) Eos # (Auto) Baso # (Auto) Abs Immat Gran (auto) Absolute Neuts (auto) Absolute Nucleated RBC Nucleated RBC % (auto) PT INR APTT PTT (Heparin Protocol) Sodium Potassium Chloride Carbon Dioxide Anion Gap BUN Creatinine Estim Creat Clear Calc Estimated GFR Random Glucose Calcium Magnesium Total Bilirubin 0.6 Direct Bilirubin 0.4 AST 71 H ALT 44 H Alkaline Phosphatase 249 H Troponin I High Sens 46.6 H* Total Protein 7.1 Albumin 3.5 Urine Color Urine Appearance Urine pH Ur Specific [place] Urine Protein Urine Glucose (UA) Urine Ketones Urine Blood Urine Nitrite Ur Leukocyte Esterase Urine RBC Urine WBC Ur Squamous Epith Cells Urine Bacteria COVID-19 ([facility]YCO) Negative COVID-19 Clin Com See Note 01/17/21 01/17/21 01/17/21 18:42 20:24 20:24 WBC 8.6 RBC 3.63 L Hgb 10.5 L Hct 33.6 L MCV 92.6 MCH 28.9 MCHC 31.3 RDW 16.0 Plt Count 162 MPV 9.9 Immature Gran % (Auto) Neut % (Auto) Lymph % (Auto) [place] % (Auto) Eos % (Auto) Baso % (Auto) Lymph # (Auto) [place] # (Auto) Eos # (Auto) Baso # (Auto) Abs Immat Gran (auto) Absolute Neuts (auto) Absolute Nucleated RBC 0.000 Nucleated RBC % (auto) 0.0 PT 15.8 H INR 1.3 H APTT PTT (Heparin Protocol) 32.3 L Sodium Potassium Chloride Carbon Dioxide Anion Gap BUN Creatinine Estim Creat Clear Calc Estimated GFR Random Glucose Calcium Magnesium Total Bilirubin Direct Bilirubin AST ALT Alkaline Phosphatase Troponin I High Sens Total Protein Albumin Urine Color YELLOW Urine Appearance CLOUDY Urine pH 5.[address] [place] >= 1.030 H Urine Protein 2+ H Urine Glucose (UA) NEG Urine Ketones 5 Urine Blood NEG Urine Nitrite NEG Ur Leukocyte Esterase 1+ H Urine RBC 0 Urine WBC 10-14 H Ur Squamous Epith Cells 1+ Urine Bacteria 1+ COVID-19 ([facility]) COVID-19 [employer] 01/17/21 01/18/21 01/18/21 21:05 02:35 02:35 WBC 7.8 RBC 3.57 L Hgb 10.2 L Hct 32.8 L MCV 91.9 MCH 28.6 MCHC 31.1 RDW 16.0 Plt Count 160 MPV 10.1 Immature Gran % (Auto) 0.3 Neut % (Auto) 68.1 Lymph % (Auto) 20.1 [place] % (Auto) 9.0 Eos % (Auto) 2.1 Baso % (Auto) 0.4 Lymph # (Auto) 1.6 [place] # (Auto) 0.7 Eos # (Auto) 0.2 Baso # (Auto) 0.0 Abs Immat Gran (auto) 0.02 Absolute Neuts (auto) 5.3 Absolute Nucleated RBC 0.020 H Nucleated RBC % (auto) 0.3 H PT INR APTT PTT (Heparin Protocol) 162.8 H* D Sodium Potassium Chloride Carbon Dioxide Anion Gap BUN Creatinine Estim Creat Clear Calc Estimated GFR Random Glucose Calcium Magnesium Total Bilirubin Direct Bilirubin AST ALT Alkaline Phosphatase Troponin I High Sens 359.6 H* D Total Protein Albumin Urine Color Urine Appearance Urine pH Ur Specific [place] Urine Protein Urine Glucose (UA) Urine Ketones Urine Blood Urine Nitrite Ur Leukocyte Esterase Urine RBC Urine WBC Ur Squamous Epith Cells Urine Bacteria COVID-19 ([facility]) COVID-19 [employer] 01/18/21 01/18/21 01/18/21 02:35 02:35 03:49 WBC RBC Hgb Hct MCV MCH MCHC RDW Plt Count MPV Immature Gran % (Auto) Neut % (Auto) Lymph % (Auto) [place] % (Auto) Eos % (Auto) Baso % (Auto) Lymph # (Auto) [place] # (Auto) Eos # (Auto) Baso # (Auto) Abs Immat Gran (auto) Absolute Neuts (auto) Absolute Nucleated RBC Nucleated RBC % (auto) PT 16.7 H INR 1.4 H APTT PTT (Heparin Protocol) 121.9 H* D Sodium 139 Potassium 4.6 Chloride 110 H Carbon Dioxide 18 L Anion Gap 16 BUN 38 H Creatinine 1.89 H Estim Creat Clear Calc 32.7 Estimated GFR 35 Random Glucose 194 H Calcium 8.3 L Magnesium Total Bilirubin Direct Bilirubin AST ALT Alkaline Phosphatase Troponin I High Sens Total Protein Albumin Urine Color Urine Appearance Urine pH Ur Specific [place] Urine Protein Urine Glucose (UA) Urine Ketones Urine Blood Urine Nitrite Ur Leukocyte Esterase Urine RBC Urine WBC Ur Squamous Epith Cells Urine Bacteria COVID-19 ([facility]YCO) [employer]Drug Response [employer]x 01/18/21 01/18/21 01/18/21 04:37 06:44 06:44 WBC 7.6 RBC 3.68 L Hgb 10.6 L Hct 34.3 L MCV 93.2 MCH 28.8 MCHC 30.9 L RDW 16.1 H Plt Count 160 MPV 11.1 Immature Gran % (Auto) Neut % (Auto) Lymph % (Auto) [place] % (Auto) Eos % (Auto) Baso % (Auto) Lymph # (Auto) [place] # (Auto) Eos # (Auto) Baso # (Auto) Abs Immat Gran (auto) Absolute Neuts (auto) Absolute Nucleated RBC 0.030 H Nucleated RBC % (auto) 0.4 H PT 15.8 H INR 1.3 H APTT PTT (Heparin Protocol) 82.0 H D Sodium Potassium Chloride Carbon Dioxide Anion Gap BUN Creatinine Estim Creat Clear Calc Estimated GFR Random Glucose Calcium Magnesium Total Bilirubin Direct Bilirubin AST ALT Alkaline Phosphatase Troponin I High Sens Total Protein Albumin Urine Color Urine Appearance Urine pH Ur Specific [place] Urine Protein Urine Glucose (UA) Urine Ketones Urine Blood Urine Nitrite Ur Leukocyte Esterase Urine RBC Urine WBC Ur Squamous Epith Cells Urine Bacteria COVID-19 ([facility]YCO) COVID-19 [employer] 01/18/21 01/18/21 06:44 08:58 WBC RBC Hgb Hct MCV MCH MCHC RDW Plt Count MPV Immature Gran % (Auto) Neut % (Auto) Lymph % (Auto) [place] % (Auto) Eos % (Auto) Baso % (Auto) Lymph # (Auto) [place] # (Auto) Eos # (Auto) Baso # (Auto) Abs Immat Gran (auto) Absolute Neuts (auto) Absolute Nucleated RBC Nucleated RBC % (auto) PT INR APTT PTT (Heparin Protocol) Sodium Potassium Chloride Carbon Dioxide Anion Gap BUN Creatinine Estim Creat Clear Calc Estimated GFR Random Glucose Calcium Magnesium 1.7 Total Bilirubin Direct Bilirubin AST ALT Alkaline Phosphatase Troponin I High Sens 900.7 H* D Total Protein Albumin Urine Color Urine Appearance Urine pH Ur Specific [place] Urine Protein Urine Glucose (UA) Urine Ketones Urine Blood Urine Nitrite Ur Leukocyte Esterase Urine RBC Urine WBC Ur Squamous Epith Cells Urine Bacteria COVID-19 ([facility]) COVID-19 Clin Com EKG shows atrial fibrillation with left axis deviation with lateral ST T downsloping changes with T-wave inversion, however these ST T wave changes were noted in EKG in 2016 at which time he also in normal sinus rhythm. Imaging Radiologist's impression: Impressions Chest X-Ray 01/17/21 18:15 IMPRESSION: Diffuse coarse interstitial markings are increased from prior study. These could reflect worsened bronchitis, pulmonary vascular congestion, or interstitial pneumonitis. Head CT 01/17/21 18:49 IMPRESSION: No evidence of acute intracranial abnormality. Specifically, there is no evidence of acute intracranial hemorrhage or acute territorial infarction. 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 Assessment and Plan (1) Syncope: Qualifiers: Syncope type: unspecified Qualified Code(s): R55 - Syncope and collapse Status: Acute Patient with syncope with ICD discharges highly concerning for ventricular fibrillation. However he does not recall the type of device digital account coordinator and cannot interrogate the device will need to obtain old records from [facility] as well as from his primary care physician's office to further decide and evaluate his ICD for exact events that happened yesterday. Cause for this ICD discharge also could be an appropriate related to atrial fibrillation rapid ventricular response however ischemic VT VF is highly likely. Continue management medically. Continue metoprolol therapy and maximize as tolerated. Echocardiogram tomorrow to assess for LV systolic function and to compared with his old study. Also continue to trend troponin, see below. (2) Non-STEMI (non-ST elevated myocardial infarction): Status: Acute Rising troponins, is highly suggestive of non ST elevation myocardial infarction. This could be secondary to his ICD discharge an event that happened yesterday in the setting of chronic kidney disease. However continue to trend troponins. Continue high-intensity statins along with IV heparin and dual antiplatelet therapy. Maximize metoprolol therapy. Currently not having active ischemic symptoms. Will evaluate echocardiogram tomorrow and may require inpatient ischemic workup prior to discharge. (3) Atrial fibrillation, new onset: Status: Acute Atrial fibrillation, new onset. Exact duration is unknown. Rate is adequately controlled. Continue metoprolol for rate control. Continue IV heparin and will eventually need to switch to oral anticoagulation therapy most likely direct oral anticoagulant therapy months to workup is completed. Will follow with the patient. Thank you for allowing us to partake in his care Procedures Date of Service Date of Service: 01/18/21
--- NOTE | 2021-01-18 10:21 | P.EN_ITS ---
Event Note Date of Service: 01/18/21 Event Note: Patient seen and examined in the emergency room and the plan of care discussed with Dr. Benson, invoice machine operator. 75-year-old male with a past medical history of hypertension, hyperlipidemia, CAD status post CABG, history of AICD for cardiomyopathy ,presented to Ed following AICD discharge and noted to have elevated troponin, although he denies chest pain.. ICD discharge--will need device check, will bring magnesium close to 2 New onset AFib: Currently rate controlled. Continue home metoprolol. Heparin Will obtain echocardiogram tomorrow NSTEMI: could be type 2 from ICD discharge, continue heparin, ASA, BB, and Lipitor and Plavix Hypertension,controlled on Metoprolol hyperlipidemi Lipitor 80
--- NOTE | 2021-01-18 10:34 | PC.NURSE ---
Assumed care of patient at 0700- morning medications given, pt alert and oriented to self and place. Patient denies any pain at this time, repeat trop elevated and repeat EKG done. Pt seen by hospitalist and perforator operator this morning, heparing gtt running and repeat ptt-hd drawn per order. At this time patient has no complaints, repositioned in the bed and family at bedside.
[2021-01-18 10:51] LABS: PTT Heparin Drip 56.3 SEC (53-77.9)
--- NOTE | 2021-01-18 10:54 | PC.NURSE ---
per dr weinstein, pt may eat, npo diet cancelled, ed diet ordered. wctm.
[2021-01-18 16:09] VITALS: BP 108/57; PULSE 69; RESP 20; TEMP 36.6; O2SAT 99
[2021-01-18 17:28] LABS: PTT Heparin Drip 58.1 SEC (53-77.9)
[2021-01-18] MEDS: Heparin Sodium,Porcine/1/2NS 25,000 UNIT/250 ML IV.SOLN 7.26 UNIT IVCONT (19:19)
[2021-01-19] VITALS (7 sets, daily range): BP systolic 102–147; BP diastolic 56–80; PULSE 65–74; RESP 16–18; TEMP 36.1–36.6; O2SAT 98–100
[2021-01-19 07:22] LABS: PTT Heparin Drip 56.1 SEC (53-77.9)
--- NOTE | 2021-01-19 08:25 | MHC.CM.PN ---
pt lives alone in apt. he does have daily RN visits via [facility]. he has a friend that lives in the area and can help c a ride home at dc. dc plan is home c cont. [facility] RN visits. cm to cont. to follow.
[2021-01-19] MEDS: Metoprolol Succinate ER 25 MG TAB.ER.24H PO (08:39)
[2021-01-19] MEDS: Atorvastatin Calcium 80 MG TABLET PO (08:39)
[2021-01-19] MEDS: Aspirin Enteric Coated 81 MG TABLET.DR PO (08:39)
[2021-01-19] MEDS: FLUoxetine HCl 20 MG CAPSULE PO (08:39)
[2021-01-19] MEDS: Clopidogrel Bisulfate 75 MG TABLET PO (08:39)
[2021-01-19] MEDS: Docusate Sodium 100 MG CAPSULE PO ×2 (08:39→20:10)
--- NOTE | 2021-01-19 08:42 | PC.NURSE ---
PT ADMITTED IN ED OVERFLOW UNLIL BED IS ASSIGNED, PT CHANGED AND REPOSITIONED, AM MEDS GIVEN, NEEDS BEING MET
[2021-01-19 09:24] LABS: Hematocrit 34.7 % (42-52); Hemoglobin 10.4 g/dl (14.0-18.0); Mean Corpuscular Hemoglobin 27.9 pg (27.0-33.0); Mean Platelet Volume 11.1 fL (9.4-12.4); Platelet Count 154 X10*3/uL (160-400); Red Blood Count 3.73 X10*6/uL (4.60-5.80); White Blood Count 7.1 X10*3/uL (4.8-10.8)
--- NOTE | 2021-01-19 09:30 | CA_ITS ---
Transthoracic Echocardiogram Patient (Last, First, Middle): Amor Adames, Gender: Male Date of : 1945 Age: 75 Procedure Date: 01/19/2021 Procedure Type: Transthoracic Echocardiogram Location: [facility] [place] Height: 175.26 cm Weight: 76.66 kg BSA: 1.92 m2 Heart Rate: bpm BP: 108 / 57 mmHg Retirement Sales Consultant: Referring MD: Delta Cruz MD Symptoms: NSTEMI wing; AICD shock Study Quality: Fair ECG Rhythm: Undetermined Conclusions: - The left ventricular systolic function is severely decreased. The visually estimated ejection fraction is between 15-20%. - The left atrium is severely dilated. - There is mild to moderate tricuspid valve regurgitation. - Mild to moderate pulmonary hypertension is present. - The inferior vena cava is dilated and collapses less than 50% with inspiration. Findings Procedure Information Contrast agent, definity, is being given per protocol without apparent complications. Left Ventricle Mildly increased left ventricular cavity size. There is normal left ventricular wall thickness. The left ventricular systolic function is severely decreased. The visually estimated ejection fraction is between 15 20%. There is severe global hypokinesis. E/E prime ratio is >15, consistent with elevated filling pressures. Evidence suggests grade II (moderate) diastolic dysfunction. Right Ventricle Normal right ventricular cavity size. There is mildly decreased right ventricular systolic function. There is an ICD wire seen in the right ventricle. Atria The left atrium is severely dilated. The right atrium is mildly dilated. Aortic Valve The aortic valve was not well visualized. There is a normal trileaflet aortic valve. There is no aortic valve stenosis. There is no aortic valve regurgitation. Mitral Valve The mitral valve appears normal. There is trace mitral valve regurgitation. There is no mitral valve stenosis. Pulmonic Valve The pulmonic valve was not well visualized. Tricuspid Valve There is mild to moderate tricuspid valve regurgitation. The right ventricular systolic pressure is 48 mmHg. Mild to moderate pulmonary hypertension is present. Great Vessels The asc aorta is normal in size. Venous The inferior vena cava is dilated and collapses less than 50% with inspiration. Pericardium/Pleural There is no evidence of pericardial effusion. Prior Study Comparison No significant change compared to prior study dated: 10/14/2014. Measurements 2D Linear Measurements IVSd: 0.88 0.6-0.9/0.6-1.0 cm LVIDd: 6.00 3.9-5.3/4.2-5.9 cm LVIDd Index: 3.13 2.4-3.2/2.2-3.1 cm/m2 LVIDs: 5.33 2.0-3.6 cm LVPWd: 0.93 0.7-1.1 cm Ao Root: 2.90 2.1-3.5 cm LA Diam: 4.90 2.7-3.8/3.0-4.0 cm LAIDs Index: 2.55 1.5-2.3 cm/m2 LV Mass: 270.22 67-162/88-224 g LV Mass Index: 140.74 43-95/49-115 g/m2 LVOT Diam: 2.00 3.0+(-)1.3 cm 2D Systolic Function EF 4C: 20.30 >55% EF 2C: 27.70 >55% EF BiP: 24.60 >55% Mitral Valve MV Pk E: 0.63 MV PK A: 0.57 MV Decel Time: 166.00 E/A: 1.10 E'Lateral: 5.98 E'Medial: 3.05 E/E' Med: 20.70 E/E' Lat: 10.50 PHT: 49.00 MVA PHT: 4.49 Decel Treasure: 3.80 Aortic Valve AoV Pk Abhijeet: 0.83 AoV Mn Abhijeet: 0.56 AoV VTI: 0.21 AoV Pk Grad: 3.00 Aov Mn Grad: 1.00 LUCERO Cont.VTI: 1.76 LVOT LVOT Pk Abhijeet: 0.43 LVOT Mn Abhijeet: 0.28 LVOT VTI: 0.12 LVOT Pk Grad: 1.00 LVOT Mn Grad: 0.00 LVOT Diam: 2.00 LVOT Area: 3.14 Diastolic Function MV Pk E: 0.63 MV Pk A: 0.57 E/A: 1.10 E'Medial: 3.05 E/E' Med: 20.70 E' Laterial: 5.98 E/E' Lat: 10.50 Tricuspid Valve TR Pk Abhijeet: 2.87 TR Pk Grad: 33.00 RA Press: 15.00 RVSP: 48.00 Great Vessels Aorta Ao Root-2D: 2.90 2.0-3.7 cm Ao Asc: 3.50 2.1-3.4 cm Pulmonary Valve PV Pk Abhijeet: 0.83 Peak PV Grad: 3.00 Updated in Other Vendor System with Status of Final Wyatt Lobato MD electronically signed on 01/19/2021 4:49:14 PM with status of Final
[2021-01-19 10:11] LABS: Troponin-I High Sensitivity 270.7 ng/L (<3.5-35.0)
--- NOTE | 2021-01-19 11:28 | HO.PM.IMPN ---
Subjective Subjective Date of Service: 01/19/21 Interval History: seen and examined this AM with health outreach worker services he denies any complaints denies cp or sob reports that he passed out at home after trying to get out of his recliner. He endorses prodromal feeling. He denies any precending chest pain denies sob ROS General - no fevers or chills Cardiovascular - no chest pain Respiratory - no shortness of breath or cough Abdominal- no abdominal pain, nausea, vomiting, diarrhea Physical Exam Vital Signs: Vital Signs: Last Vital Signs Temp 97.9 F 01/19/21 07:28 Pulse 72 01/19/21 09:54 Resp 17 01/19/21 09:54 BP 147/80 H 01/19/21 09:54 Pulse Ox 98 01/19/21 09:54 Oxygen Flow Rate 2 01/17/21 17:53 Body Mass Index 24.6 Const: Other: General - no acute distress, appears comfortable Cardiovascular - regular rate and rhythm, S1-S2 Lungs - normal respiratory effort, clear to auscultation bilaterally, no wheezing Abdomen - soft, nontender, no rebound or guarding Extremities - no edema bilaterally Neuro - awake and alert, no focal deficits Objective Data Current Medications Generic Name Dose Route Start Last Admin Trade Name Freq PRN Reason Stop Dose Admin Acetaminophen 650 mg 01/18/21 00:31 Acetaminophen 325 Mg Tablet PO Q6H PRN Pain, Mild (Pain Scale 1-3) Aspirin 81 mg 01/18/21 09:00 01/19/21 08:39 Aspirin Enteric Coated 81 Mg Tablet. PO 81 mg DAILY FLORENTIN Administration Atorvastatin Calcium 80 mg 01/18/21 09:00 01/19/21 08:39 Atorvastatin Calcium 80 Mg Tablet PO 80 mg DAILY FLORENTIN Administration Clopidogrel Bisulfate 75 mg 01/18/21 09:00 01/19/21 08:39 Clopidogrel Bisulfate 75 Mg Tablet PO 75 mg DAILY FLORENTIN Administration Docusate Sodium 100 mg 01/18/21 09:00 01/19/21 08:39 Docusate Sodium 100 Mg Capsule PO 100 mg BID FLORENTIN Administration Fluoxetine HCl 20 mg 01/18/21 09:00 01/19/21 08:39 Fluoxetine Hcl 20 Mg Capsule PO 20 mg DAILY FLORENTIN Administration Heparin Sodium (Porcine) 3,000 unit 01/18/21 00:31 Heparin Sodium,Porcine 5,000 Unit/Ml Vial 40 unit/kg (3000 unit) IVPUSH BOLUS PRN 40 unit/kg - Heparin Protocol Heparin Sodium (Porcine) 6,100 unit 01/18/21 00:31 Heparin Sodium,Porcine 5,000 Unit/Ml Vial 80 unit/kg (6100 unit) IVPUSH BOLUS PRN 80 unit/kg - Heparin Protocol Heparin Sodium/Sodium Chloride 25,000 unit in 250 mls @ 0 mls/hr 01/17/21 20:00 01/19/21 09:50 IVCONT 8 units/kg/hr .Q0M FLORENTIN 7.26 mls/hr Titration Protocol Per Protocol Dextrose/Sodium Chloride 1,000 mls @ 50 mls/hr 01/18/21 00:45 01/18/21 19:24 D51/2ns IVCONT 50 mls/hr .Q20H FLORENTIN Administration Magnesium Hydroxide 30 ml 01/18/21 00:31 Milk Of Magnesia 30 Ml Oral.Susp PO DAILY PRN Constipation Metoprolol Succinate 25 mg 01/18/21 09:00 01/19/21 08:39 Metoprolol Succinate Er 25 Mg Tab.Er.24h PO 25 mg DAILY FLORENTIN Administration Protocol Nitroglycerin 0.4 mg 01/18/21 00:31 Nitroglycerin 0.4 Mg Tab.Subl SUBLINGUAL Q5M PRN Chest Pain Sodium Chloride 3 ml 01/18/21 08:00 01/19/21 08:40 0.9 % Sodium Chloride Flush 3 Ml Syringe IVFLUSH Not Given QSHIFT [facility] Labs CBC & Chem 7: 01/19/21 09:15 01/18/21 02:35 Microbiology Microbiology Results: Microbiology 01/17/21 18:51 Urine clean catch - Clean Catch Midstream Urine Culture - Final Assessment and Plan (1) Syncope: Status: Acute (2) Non-STEMI (non-ST elevated myocardial infarction): Status: Acute (3) Atrial fibrillation, new onset: Status: Acute Assessment and Plan: This is a 75 yo M with a PMH of CAD s/p CABG, AICD placement who presents with syncope. He is admitted for further work up 1. 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 continue asa/plavix continue heparin gtt, bb echo today cardiology following 2. New onset A. Fib duration unknown rate controlled on betablocker, continue on heparin gtt, will need to transition to oral anticoagulant once work up completed 3. Syncope ? related to above issues echo today 4. CKD stage 3 SCr at baseline, await labs today 5. HTN on the lower side initially, now rebounding continue toprol at home dose (25) and adjust accordingly 6. HLD statin Full Code DVT pptx, Heparin gtt
--- NOTE | 2021-01-19 11:29 | PC.NURSE ---
Patient holding in ED waiting for room assignment. For comfort patient transferred from ED stretcher onto hospital bed.
--- NOTE | 2021-01-19 11:54 | P.PNCA_ITS ---
Subjective Subjective Date of Service: 01/19/21 <PERRI Chan - Last Filed: 01/19/21 13:10> 01/19/21 <Wyatt Lobato MD - Last Filed: 01/19/21 13:48> Principal diagnosis: syncope, NSTEMI, ICD in place <PERRI Chan - Last Filed: 01/19/21 13:10> Interval history: Cardiology follow up for the above. Seen at 1030. Today he report feeling OK. Denies feeling sob, chest pains, palpitation, dizziness, edema. Prior to admit states he was getting out of chair, felt like he was going to pass out and fell onto floor. <PERRI Chan - Last Filed: 01/19/21 13:10> Review of Systems Review of Systems as above <PERRI Chan - Last Filed: 01/19/21 13:10> Physical Exam Vital Signs: Last Vital Signs Temp 97.9 F 01/19/21 07:28 Pulse 72 01/19/21 09:54 Resp 17 01/19/21 09:54 BP 147/80 H 01/19/21 09:54 Pulse Ox 98 01/19/21 09:54 Oxygen Flow Rate 2 01/17/21 17:53 Body Mass Index 24.6 <PERRI Chan - Last Filed: 01/19/21 13:10> Const General: cooperative, no acute distress, alert and awake <PERRI Chan - Last Filed: 01/19/21 13:10> Orientation/consciousness: patient oriented x3 <PERRI Chan - Last Filed: 01/19/21 13:10> HENMT Other: engorged neck veins <PERRI Chan - Last Filed: 01/19/21 13:10> Resp Other: rales noted anteriorly and posteriorly <PERRI Chan - Last Filed: 01/19/21 13:10> Effort & Inspection: normal respiratory effort and not labored <PERRI Chan - Last Filed: 01/19/21 13:10> Auscultation: clear to auscultation bilaterally, no rhonchi and no wheezes <Sharron Perez NP-C - Last Filed: 01/19/21 13:10> Cardio Jugular venous distension: JVD present <DIONNE ChanC - Last Filed: 01/19/21 13:10> Palpation: normal PMI <DIONNE ChanC - Last Filed: 01/19/21 13:10> Rate: regular rate <DIONNE ChanC - Last Filed: 01/19/21 13:10> Rhythm: regular rhythm <Sharron Perez NP-C - Last Filed: 01/19/21 13:10> Heart sounds: S1 normal heart sound present and S2 normal heart sound present <DIONNE ChanC - Last Filed: 01/19/21 13:10> Peripheral pulses: Peripheral pulses 2+ throughout <DIONNE ChanC - Last Filed: 01/19/21 13:10> GI Inspection: Yes normal to inspection <Sharron Perez NP-C - Last Filed: 01/19/21 13:10> Skin General skin exam: no rashes or lesions noted <Sharron Perez NP-C - Last Filed: 01/19/21 13:10> Neuro General: patient oriented x3 <DIONNE ChanC - Last Filed: 01/19/21 13:10> Extrem General: Yes normal to inspection and No edema <Sharron Perez NP-C - Last Filed: 01/19/21 13:10> Results Labs and Meds Result diagrams: : 01/19/21 09:15 01/19/21 10:18 <Sharron Perez NP-C - Last Filed: 01/19/21 13:10> Lab results: Laboratory Results - last 24 hr 01/18/21 01/19/21 01/19/21 17:14 06:29 09:15 WBC 7.1 RBC 3.73 L Hgb 10.4 L Hct 34.7 L MCV 93.0 MCH 27.9 MCHC 30.0 L RDW 16.0 Plt Count 154 L MPV 11.1 Absolute Nucleated RBC 0.000 Nucleated RBC % (auto) 0.0 PTT (Heparin Protocol) 58.1 56.1 Troponin I High Sens 01/19/21 09:15 WBC RBC Hgb Hct MCV MCH MCHC RDW Plt Count MPV Absolute Nucleated RBC Nucleated RBC % (auto) PTT (Heparin Protocol) Troponin I High Sens 270.7 H* D <Sharron Pedro PERRI Perez - Last Filed: 01/19/21 13:10> Progress Note: A&P Assessment and plan (1) Syncope: Status: Acute <SharronPERRI Evans - Last Filed: 01/19/21 13:10> Assessment and Plan: Report of syncopal event prior to admit. Unclear is it was a fall from his chair or true syncope. Initial concern for possible ICD shock. Device interrogation done by me today shows no recent Alerts, no ICD shocks, no ATP. He does have intermittent episodes of NSVT, Last being December 17. Tele monitoring since admit shows SR, isolated PVCs. Continue tele monitoring. <PERRI Chan - Last Filed: 01/19/21 13:10> (2) Non-STEMI (non-ST elevated myocardial infarction): Status: Acute <PERRI Chan - Last Filed: 01/19/21 13:10> Assessment and Plan: Troponin elevated up to 900. He did report having episodes of CP prior to admit, none since admit. Hx of CABG 15yr ago. He is not able to tell me who is bid clerk is. Will try to obtain information from [facility]. Has been on Heparin drip for anticoagulation. Continue for at least 48hrs total. Continue DAPT, which he is on at home. Continue Metoprolol and Atorvastatin. EKG if he does report CP. Echo planned for today. <PERRI Chan - Last Filed: 01/19/21 13:10> (3) Atrial fibrillation, new onset: Status: Acute <PERRI Chan - Last Filed: 01/19/21 13:10> Assessment and Plan: EKG on admit does show Afib. Has since converted to SR. Tele shows SR. Continues on his usual Metoprolol. CHADSVASc score of at least 3 with age, vascular ds. Currently being anticoagulated with Heparin drip. Will work on obtaining hx from records. <Sharron Vasquez PERRI Perez - Last Filed: 01/19/21 13:10> (4) AICD (automatic cardioverter/defibrillator) present: Status: Inactive <Sharron PerezPERRI - Last Filed: 01/19/21 13:10> Assessment and Plan: [employer] Single lead ICD Interrogation today by me shows battery OK, Thresholds normal, FIELD OPERATOR < 1%, No alerts, no ICD shocks or ATP prior to admit. hx of high V rates, last being 12/17/20, no therapy. HF monitoring shows drop in impeadance, activity level is less than 1 hr a day. Heartlogic score of 27, threshold score 16. Elevated reading consistent with HF <Sharron Vasquez PERRI Perez - Last Filed: 01/19/21 13:10> (5) Shortness of breath: Status: Acute <Sharron Vasquez PERRI Perez - Last Filed: 01/19/21 13:10> Assessment and Plan: He reports having sob at home when he does not wear O2 at night. No sob noted at present. Sat 100% on RA. Lungs do have rales on exam, + JVD noted. ICD HF monitoring data supporting CHF. CXR this admit with increased markings which could be related to pulm vascular congestion or interstitial ds. He is not on diuretics at home. Echo is pending. Will add BNP on to am labs. <Sharron Vasquez PERRI Perez - Last Filed: 01/19/21 13:10> Fall Risk Details Current Medications: Current Medications Generic Name Dose Route Start Last Admin Trade Name Karely PRN Reason Stop Dose Admin Acetaminophen 650 mg 01/18/21 00:31 Acetaminophen 325 Mg Tablet PO Q6H PRN Pain, Mild (Pain Scale 1-3) Aspirin 81 mg 01/18/21 09:00 01/19/21 08:39 Aspirin Enteric Coated 81 Mg Tablet. PO 81 mg DAILY FLORENTIN Administration Atorvastatin Calcium 80 mg 01/18/21 09:00 01/19/21 08:39 Atorvastatin Calcium 80 Mg Tablet PO 80 mg DAILY FLORENTIN Administration Clopidogrel Bisulfate 75 mg 01/18/21 09:00 01/19/21 08:39 Clopidogrel Bisulfate 75 Mg Tablet PO 75 mg DAILY FLORENTIN Administration Docusate Sodium 100 mg 01/18/21 09:00 01/19/21 08:39 Docusate Sodium 100 Mg Capsule PO 100 mg BID FLORENTIN Administration Fluoxetine HCl 20 mg 01/18/21 09:00 01/19/21 08:39 Fluoxetine Hcl 20 Mg Capsule PO 20 mg DAILY FLORENTIN Administration Heparin Sodium (Porcine) 3,000 unit 01/18/21 00:31 Heparin Sodium,Porcine 5,000 Unit/Ml Vial 40 unit/kg (3000 unit) IVPUSH BOLUS PRN 40 unit/kg - Heparin Protocol Heparin Sodium (Porcine) 6,100 unit 01/18/21 00:31 Heparin Sodium,Porcine 5,000 Unit/Ml Vial 80 unit/kg (6100 unit) IVPUSH BOLUS PRN 80 unit/kg - Heparin Protocol Heparin Sodium/Sodium Chloride 25,000 unit in 250 mls @ 0 mls/hr 01/17/21 20:00 01/19/21 09:50 IVCONT 8 units/kg/hr .Q0M FLORENTIN 7.26 mls/hr Titration Protocol Per Protocol Magnesium Hydroxide 30 ml 01/18/21 00:31 Milk Of Magnesia 30 Ml Oral.Susp PO DAILY PRN Constipation Metoprolol Succinate 25 mg 01/18/21 09:00 01/19/21 08:39 Metoprolol Succinate Er 25 Mg Tab.Er.24h PO 25 mg DAILY FLORENTIN Administration Protocol Nitroglycerin 0.4 mg 01/18/21 00:31 Nitroglycerin 0.4 Mg Tab.Subl SUBLINGUAL Q5M PRN Chest Pain Sodium Chloride 3 ml 01/18/21 08:00 01/19/21 08:40 0.9 % Sodium Chloride Flush 3 Ml Syringe IVFLUSH Not Given QSHIFT FLORENTIN <PERRI Chan - Last Filed: 01/19/21 13:10> Time Spent With Patient Time: Total time spent is greater than 50% in coordination of care (as documented) at patient's floor/unit and/or counseling patient: 24 <PERRI Chan Last Filed: 01/19/21 13:10> Time with patient: 15 - 24 minutes <PERRI Chan Last Filed: 01/19/21 13:10> Procedures Date of Service Date of Service: 01/19/21 <PERRI Chan - Last Filed: 01/19/21 13:10>
[2021-01-19 12:03] LABS: Anion Gap 15 (12-20); Blood Urea Nitrogen 38 mg/dL (9-16); Calcium 8.3 mg/dL (8.4-10.2); Carbon Dioxide 19 mmol/L (22-29); Chloride 111 mmol/L (96-108); Creatinine Clr Calc Pharmacy 42.6; Estimated Glomerular Filt Rate 47; Glucose Random 220 mg/dL (60-115); Potassium 4.9 mmol/L (3.3-5.1); Sodium 140 mmol/L (135-145)
[2021-01-19 13:07] LABS: B Type Natriuretic Peptide 723 pg/mL (<100)
--- NOTE | 2021-01-19 13:27 | PC.NURSE ---
attempted to call report [phone]
[2021-01-19] MEDS: Furosemide 20 MG/2 ML VIAL IVPUSH (15:53)
[2021-01-19] MEDS: 0.9 % Sodium Chloride Flush 3 ML SYRINGE IVFLUSH ×2 (15:57→20:10)
--- NOTE | 2021-01-20 | CA_ITS ---
Acquisition Time: 2021-01-21 10:43:51 Total Exercise Time: 00:02:00 Test Indications: NSTEMI,ICD,CHF Medications: Protocol: LEXISCAN Max HR: 084 BPM 58% of Pred: 143 BPM Max BP: 122/080 mmHG Max Work Load: 1.0 METS Pharmacological stress test with Lexiscan injection, while sitting, with mild shortness of breath, no chest discomfort, with isolated PVC and 2 ventricular cuplets, with hypotensive response to injection with low BP 92/60, with nondiagnostic EKG for ischemia. In recovery he reported shortness of breath that was treated with Aminophylline 75mg IVP to reverse Lexiscan with resolution of symptom and improvement in BP. Nuclear images pending. Test reviewed with Dr Lobato. Referred By: Wyatt Lobato Overread By: SARA PHAN
[2021-01-20 04:00] VITALS: BP 149/78; PULSE 74; RESP 22; TEMP 36.2; O2SAT 99
[2021-01-20] MEDS: Heparin Sodium,Porcine/1/2NS 25,000 UNIT/250 ML IV.SOLN 7.26 UNIT IVCONT (06:29)
[2021-01-20 07:58] VITALS: BP 127/66; PULSE 73; RESP 20; TEMP 36.4; O2SAT 93
[2021-01-20] MEDS: Aspirin Enteric Coated 81 MG TABLET.DR PO (08:29)
[2021-01-20] MEDS: Clopidogrel Bisulfate 75 MG TABLET PO (08:29)
[2021-01-20] MEDS: Metoprolol Succinate ER 25 MG TAB.ER.24H PO (08:29)
[2021-01-20] MEDS: Atorvastatin Calcium 80 MG TABLET PO (08:29)
[2021-01-20] MEDS: 0.9 % Sodium Chloride Flush 3 ML SYRINGE IVFLUSH ×2 (08:29→20:07)
[2021-01-20] MEDS: Docusate Sodium 100 MG CAPSULE PO ×2 (08:29→20:06)
[2021-01-20] MEDS: FLUoxetine HCl 20 MG CAPSULE PO (08:29)
[2021-01-20 08:30] LABS: PTT Heparin Drip 52.4 SEC (53-77.9)
[2021-01-20 09:08] LABS: Hematocrit 34.4 % (42-52); Hemoglobin 10.4 g/dl (14.0-18.0); Mean Corpuscular HGB Conc 30.2 g/dl (31.0-36.0); Mean Corpuscular Hemoglobin 28.1 pg (27.0-33.0); Mean Platelet Volume 10.8 fL (9.4-12.4); NRBC Pct Auto 0.3 /100WBC (0.0-0.2); Platelet Count 170 X10*3/uL (160-400); Red Cell Distribution Width 15.9 % (11.0-16.0); White Blood Count 7.5 X10*3/uL (4.8-10.8)
[2021-01-20] MEDS: Heparin Sodium,Porcine 5,000 UNIT/ML VIAL 3000 UNIT IVPUSH (09:30)
[2021-01-20 09:34] LABS: B Type Natriuretic Peptide 1137 pg/mL (<100)
[2021-01-20 09:41] LABS: Anion Gap 14 (12-20); Blood Urea Nitrogen 43 mg/dL (9-16); Carbon Dioxide 21 mmol/L (22-29); Chloride 110 mmol/L (96-108); Creatinine Clr Calc Pharmacy 41.2; Estimated Glomerular Filt Rate 45; Glucose Random 215 mg/dL (60-115); Potassium 5.3 mmol/L (3.3-5.1); Sodium 140 mmol/L (135-145)
--- NOTE | 2021-01-20 10:50 | P.PNCA_ITS ---
Subjective Subjective Date of Service: 01/20/21 Principal diagnosis: syncope, NSTEMI, ICD in place Interval history: He states that he feels well. No angina or other cardiac symptoms. Review of Systems Review of Systems Yes all other systems are reviewed and are negative Cardiovascular: Reports as per HPI, Reports no additional cardiovascular complaints, Denies acrocyanosis, Denies cool extremities, Denies painful fingertips, Denies chest pain, Denies chest pain at rest, Denies diaphoresis, Denies syncope, Denies irregular heart rhythm, Denies claudication, Denies leg edema, Denies lightheadedness, Denies palpitations and Denies dyspnea Respiratory: Denies dyspnea Denies syncope Endocrine: Denies palpitations Physical Exam Vital Signs: Last Vital Signs Temp 97.6 F 01/20/21 07:58 Pulse 73 01/20/21 07:58 Resp 20 01/20/21 07:58 BP 127/66 01/20/21 07:58 Pulse Ox 93 01/20/21 07:58 Oxygen Flow Rate 2 01/17/21 17:53 Body Mass Index 24.6 Const General: cooperative, comfortable and no acute distress Orientation/consciousness: patient oriented x3 [facility] Other: Unremarkable Neck Neck: Yes normal visual inspection Chest Chest palpation & inspection: normal inspection of the chest Resp Auscultation: clear to auscultation bilaterally, crackles and no wheezes Cardio Jugular venous distension: no JVD Palpation: normal PMI Heart sounds: S1 normal heart sound present, S2 normal heart sound present, no gallops, no murmurs and no rubs GI Palpation (GI): Soft to palpation Back/Spine/Pelvis Other: unremarkable Skin General skin exam: no rashes or lesions noted Neuro General: patient oriented x3 Extrem General: Yes no clubbing, cyanosis or edema Psych Mental Status: mental status grossly normal Results Labs and Meds Result diagrams: 01/20/21 08:39 01/20/21 08:39 Lab results: Laboratory Results - last 24 hr 01/19/21 01/19/21 01/20/21 09:15 10:18 07:47 WBC RBC Hgb Hct MCV MCH MCHC RDW Plt Count MPV Absolute Nucleated RBC Nucleated RBC % (auto) PTT (Heparin Protocol) 52.4 L Sodium 140 Potassium 4.9 Chloride 111 H Carbon Dioxide 19 L Anion Gap 15 BUN 38 H Creatinine 1.45 H Estim Creat Clear Calc 42.6 Estimated GFR 47 Random Glucose 220 H Calcium 8.3 L B-Natriuretic Peptide 723 H 01/20/21 01/20/21 01/20/21 08:39 08:39 08:39 WBC 7.5 RBC 3.70 L Hgb 10.4 L Hct 34.4 L MCV 93.0 MCH 28.1 MCHC 30.2 L RDW 15.9 Plt Count 170 MPV 10.8 Absolute Nucleated RBC 0.020 H Nucleated RBC % (auto) 0.3 H PTT (Heparin Protocol) Sodium 140 Potassium 5.3 H Chloride 110 H Carbon Dioxide 21 L Anion Gap 14 BUN 43 H Creatinine 1.50 H Estim Creat Clear Calc 41.2 Estimated GFR 45 Random Glucose 215 H Calcium 9.0 D B-Natriuretic Peptide 1137 H Progress Note: A&P Assessment and plan (1) Paroxysmal atrial flutter: Status: Acute (2) Non-STEMI (non-ST elevated myocardial infarction): Status: Acute (3) Ischemic cardiomyopathy: Status: Acute (4) Status post aorto-coronary artery bypass graft: Status: Acute (5) ICD (implantable cardioverter-defibrillator) in place: Status: Acute Assessment and Plan: In the initial EKG, rhythm appears to be possibly flutter. Currently, he is in sinus rhythm with frequent PACs. We can treat him with long-term anticoagulation as he is at considerable risk for developing atrial fibrillation. Otherwise echocardiogram with severe LV dysfunction. On review of prior records, there is a history of coronary artery bypass surgery from 2003. 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 Troponins are clearly in the NSTEMI range. Cardiac BNP is going up. Yesterday it was 723. Today it is 1100. We can diurese him empirically. Lexiscan stress Mibi to be completed. Fall Risk Details Current Medications: Current Medications Generic Name Dose Route Start Last Admin Trade Name Freq PRN Reason Stop Dose Admin Acetaminophen 650 mg 01/18/21 00:31 Acetaminophen 325 Mg Tablet PO Q6H PRN Pain, Mild (Pain Scale 1-3) Aspirin 81 mg 01/18/21 09:00 01/20/21 08:29 Aspirin Enteric Coated 81 Mg Tablet. PO 81 mg DAILY FLORENTIN Administration Atorvastatin Calcium 80 mg 01/18/21 09:00 01/20/21 08:29 Atorvastatin Calcium 80 Mg Tablet PO 80 mg DAILY FLORENTIN Administration Clopidogrel Bisulfate 75 mg 01/18/21 09:00 01/20/21 08:29 Clopidogrel Bisulfate 75 Mg Tablet PO 75 mg DAILY FLORENTIN Administration Docusate Sodium 100 mg 01/18/21 09:00 01/20/21 08:29 Docusate Sodium 100 Mg Capsule PO 100 mg BID FLORENTIN Administration Fluoxetine HCl 20 mg 01/18/21 09:00 01/20/21 08:29 Fluoxetine Hcl 20 Mg Capsule PO 20 mg DAILY FLORENTIN Administration Heparin Sodium (Porcine) 3,000 unit 01/18/21 00:31 01/20/21 09:30 Heparin Sodium,Porcine 5,000 Unit/Ml Vial 40 unit/kg (3000 unit) 3,000 unit IVPUSH Administration BOLUS PRN 40 unit/kg - Heparin Protocol Heparin Sodium (Porcine) 6,100 unit 01/18/21 00:31 Heparin Sodium,Porcine 5,000 Unit/Ml Vial 80 unit/kg (6100 unit) IVPUSH BOLUS PRN 80 unit/kg - Heparin Protocol Heparin Sodium/Sodium Chloride 25,000 unit in 250 mls @ 0 mls/hr 01/17/21 20: 00 01/20/21 09:31 IVCONT 10 units/kg/hr .Q0M FLORENTIN 9.07 mls/hr Titration Protocol Per Protocol Magnesium Hydroxide 30 ml 01/18/21 00:31 Milk Of Magnesia 30 Ml Oral.Susp PO DAILY PRN Constipation Metoprolol Succinate 25 mg 01/18/21 09:00 01/20/21 08:29 Metoprolol Succinate Er 25 Mg Tab.Er.24h PO 25 mg DAILY FLORENTIN Administration Protocol Nitroglycerin 0.4 mg 01/18/21 00:31 Nitroglycerin 0.4 Mg Tab.Subl SUBLINGUAL Q5M PRN Chest Pain Sodium Chloride 3 ml 01/18/21 08:00 01/20/21 08:29 0.9 % Sodium Chloride Flush 3 Ml Syringe IVFLUSH 3 ml QSHIFT FLORENTIN Administration Time Spent With Patient Time: Total time spent is greater than 50% in coordination of care (as documented) at patient's floor/unit and/or counseling patient: Time with patient: less than 15 minutes Procedures Date of Service Date of Service: 01/20/21
--- NOTE | 2021-01-20 12:08 | HO.PM.IMPN ---
Subjective Subjective Date of Service: 01/20/21 Interval History: seen and examined this AM no cp mild sob with non productive cough ROS General - no fevers or chills Cardiovascular - no chest pain Respiratory - +sob with non-productive cough Abdominal- no abdominal pain, nausea, vomiting, diarrhea Physical Exam Vital Signs: Vital Signs: Last Vital Signs Temp 97.6 F 01/20/21 07:58 Pulse 73 01/20/21 07:58 Resp 20 01/20/21 07:58 BP 127/66 01/20/21 07:58 Pulse Ox 93 01/20/21 07:58 Oxygen Flow Rate 2 01/17/21 17:53 Body Mass Index 24.6 Const: Other: General - no acute distress, appears comfortable Cardiovascular - regular rate and rhythm, S1-S2 Lungs - fine rales Abdomen - soft, nontender, no rebound or guarding Extremities - no edema bilaterally Neuro - awake and alert, no focal deficits Objective Data Current Medications Generic Name Dose Route Start Last Admin Trade Name Freq PRN Reason Stop Dose Admin Acetaminophen 650 mg 01/18/21 00:31 Acetaminophen 325 Mg Tablet PO Q6H PRN Pain, Mild (Pain Scale 1-3) Aspirin 81 mg 01/18/21 09:00 01/20/21 08:29 Aspirin Enteric Coated 81 Mg Tablet. PO 81 mg DAILY FLORENTIN Administration Atorvastatin Calcium 80 mg 01/18/21 09:00 01/20/21 08:29 Atorvastatin Calcium 80 Mg Tablet PO 80 mg DAILY FLORENTIN Administration Clopidogrel Bisulfate 75 mg 01/18/21 09:00 01/20/21 08:29 Clopidogrel Bisulfate 75 Mg Tablet PO 75 mg DAILY FLORENTIN Administration Docusate Sodium 100 mg 01/18/21 09:00 01/20/21 08:29 Docusate Sodium 100 Mg Capsule PO 100 mg BID FLORENTIN Administration Fluoxetine HCl 20 mg 01/18/21 09:00 01/20/21 08:29 Fluoxetine Hcl 20 Mg Capsule PO 20 mg DAILY FLORENTIN Administration Heparin Sodium (Porcine) 3,000 unit 01/18/21 00:31 01/20/21 09:30 Heparin Sodium,Porcine 5,000 Unit/Ml Vial 40 unit/kg (3000 unit) 3,000 unit IVPUSH Administration BOLUS PRN 40 unit/kg - Heparin Protocol Heparin Sodium (Porcine) 6,100 unit 01/18/21 00:31 Heparin Sodium,Porcine 5,000 Unit/Ml Vial 80 unit/kg (6100 unit) IVPUSH BOLUS PRN 80 unit/kg - Heparin Protocol Heparin Sodium/Sodium Chloride 25,000 unit in 250 mls @ 0 mls/hr 01/17/21 20:00 01/20/21 09:31 IVCONT 10 units/kg/hr .Q0M FLORENTIN 9.07 mls/hr Titration Protocol Per Protocol Magnesium Hydroxide 30 ml 01/18/21 00:31 Milk Of Magnesia 30 Ml Oral.Susp PO DAILY PRN Constipation Metoprolol Succinate 25 mg 01/18/21 09:00 01/20/21 08:29 Metoprolol Succinate Er 25 Mg Tab.Er.24h PO 25 mg DAILY FLORENTIN Administration Protocol Nitroglycerin 0.4 mg 01/18/21 00:31 Nitroglycerin 0.4 Mg Tab.Subl SUBLINGUAL Q5M PRN Chest Pain Sodium Chloride 3 ml 01/18/21 08:00 01/20/21 08:29 0.9 % Sodium Chloride Flush 3 Ml Syringe IVFLUSH 3 ml QSHIFT FLORENTIN Administration Labs CBC & Chem 7: 01/20/21 08:39 01/20/21 08:39 Labs: Laboratory Results - last 24 hr 01/19/21 01/20/21 01/20/21 09:15 07:47 08:39 WBC RBC Hgb Hct MCV MCH MCHC RDW Plt Count MPV Absolute Nucleated RBC Nucleated RBC % (auto) PTT (Heparin Protocol) 52.4 L Sodium 140 Potassium 5.3 H Chloride 110 H Carbon Dioxide 21 L Anion Gap 14 BUN 43 H Creatinine 1.50 H Estim Creat Clear Calc 41.2 Estimated GFR 45 Random Glucose 215 H Calcium 9.0 D B-Natriuretic Peptide 723 H 01/20/21 01/20/21 08:39 08:39 WBC 7.5 RBC 3.70 L Hgb 10.4 L Hct 34.4 L MCV 93.0 MCH 28.1 MCHC 30.2 L RDW 15.9 Plt Count 170 MPV 10.8 Absolute Nucleated RBC 0.020 H Nucleated RBC % (auto) 0.3 H PTT (Heparin Protocol) Sodium Potassium Chloride Carbon Dioxide Anion Gap BUN Creatinine Estim Creat Clear Calc Estimated GFR Random Glucose Calcium B-Natriuretic Peptide 1137 H Microbiology Microbiology Results: Microbiology 01/17/21 18:51 Urine Culture - Final Urine clean catch - Clean Catch Midstream Assessment and Plan (1) Syncope: Status: Acute (2) Non-STEMI (non-ST elevated myocardial infarction): Status: Acute (3) Atrial fibrillation, new onset: Status: Acute Assessment and Plan: This is a 75 yo M with a PMH of CAD s/p CABG, AICD placement who presents with syncope. He is admitted for further work up 1. NSTEMI will need inpatient stress test on aspirin/bb/statin continue heparrin gtt until stress test done cardiology on the case 2. Acute systolic CHF echo showing ef of 15-20% (decreased from outside Echo in January 2020 -- 35-40% at that time) BNP increasing, has some dyspnea Iv lasix 20mg BID 2. New onset A. Fib/flutter now in sinus continue metoprolol switch to oral anticoagulation once ischemic work up done 3. Syncope ? related to above issues no further episodes 4. CKD stage 3 SCr at baseline monitor closely while being diuresed 5. HTN on the lower side initially, now rebounding continue toprol at home dose (25) and adjust accordingly 6. HLD statin Full Code DVT pptx, Heparin gtt
[2021-01-20 13:22] VITALS: BP 100/56; PULSE 72; RESP 18; TEMP 36.4; O2SAT 99
[2021-01-20] MEDS: Furosemide 20 MG/2 ML VIAL IVPUSH ×2 (13:24→17:09)
--- NOTE | 2021-01-20 13:34 | MHC.CM.PN ---
PER PHYSICIAN ROUNDS, PATIENT IS STILL ON HEPARIN DRIP. PLAN IS FOR DC TO HOME BY END OF WEEK.
[2021-01-20 15:39] LABS: PTT Heparin Drip 86.2 SEC (53-77.9)
[2021-01-20 15:46] VITALS: BP 111/68; PULSE 66; RESP 18; TEMP 35.9; O2SAT 97
[2021-01-20 20:00] VITALS: BP 100/59; PULSE 70; RESP 20; TEMP 36.5; O2SAT 95
[2021-01-20 22:06] LABS: PTT Heparin Drip 63.2 SEC (53-77.9)
[2021-01-20 23:18] VITALS: BP 107/69; PULSE 66; RESP 20; TEMP 36.4; O2SAT 93
[2021-01-21 03:38] LABS: PTT Heparin Drip 32.4 SEC (53-77.9)
[2021-01-21 03:40] VITALS: BP 138/73; PULSE 65; RESP 18; TEMP 36.6; O2SAT 96
[2021-01-21] MEDS: Heparin Sodium,Porcine 5,000 UNIT/ML VIAL 6100 UNIT IVPUSH (04:03)
[2021-01-21] MEDS: Heparin Sodium,Porcine/1/2NS 25,000 UNIT/250 ML IV.SOLN 7.26 UNIT IVCONT (04:04)
[2021-01-21 07:10] LABS: Hematocrit 32.6 % (42-52); Mean Corpuscular HGB Conc 30.7 g/dl (31.0-36.0); Mean Corpuscular Volume 91.3 fL (80-98); Mean Platelet Volume 11.2 fL (9.4-12.4); NRBC Pct Auto 0.3 /100WBC (0.0-0.2); Platelet Count 159 X10*3/uL (160-400); Red Blood Count 3.57 X10*6/uL (4.60-5.80); Red Cell Distribution Width 15.9 % (11.0-16.0); White Blood Count 7.7 X10*3/uL (4.8-10.8)
[2021-01-21 07:35] LABS: Anion Gap 13 (12-20); Blood Urea Nitrogen 40 mg/dL (9-16); Calcium 8.9 mg/dL (8.4-10.2); Carbon Dioxide 22 mmol/L (22-29); Chloride 107 mmol/L (96-108); Creatinine Clr Calc Pharmacy 43.8; Estimated Glomerular Filt Rate 49; Glucose Random 179 mg/dL (60-115); Sodium 138 mmol/L (135-145)
[2021-01-21 07:43] VITALS: BP 135/79; PULSE 66; RESP 18; TEMP 36.1; O2SAT 95
[2021-01-21] MEDS: Docusate Sodium 100 MG CAPSULE PO ×2 (08:41→20:14)
[2021-01-21] MEDS: Atorvastatin Calcium 80 MG TABLET PO (08:41)
[2021-01-21] MEDS: Metoprolol Succinate ER 25 MG TAB.ER.24H PO (08:41)
[2021-01-21] MEDS: FLUoxetine HCl 20 MG CAPSULE PO (08:41)
[2021-01-21] MEDS: Aspirin Enteric Coated 81 MG TABLET.DR PO (08:41)
[2021-01-21] MEDS: Clopidogrel Bisulfate 75 MG TABLET PO (08:42)
[2021-01-21] MEDS: Furosemide 20 MG/2 ML VIAL IVPUSH ×2 (08:42→17:46)
--- NOTE | 2021-01-21 09:52 | P.PNCA_ITS ---
Subjective Subjective Date of Service: 01/21/21 Principal diagnosis: syncope, NSTEMI, ICD in place Interval history: He states that he feels okay. No specific complaints. Review of Systems Review of Systems Yes all other systems are reviewed and are negative Cardiovascular: Reports as per HPI, Reports no additional cardiovascular complaints, Denies acrocyanosis, Denies cool extremities, Denies painful fingertips, Denies chest pain, Denies chest pain at rest, Denies diaphoresis, Denies syncope, Denies irregular heart rhythm, Denies claudication, Denies leg edema, Denies lightheadedness, Denies palpitations and Denies dyspnea Respiratory: Denies dyspnea Denies syncope Endocrine: Denies palpitations Physical Exam Vital Signs: Last Vital Signs Temp 97.0 F 01/21/21 07:43 Pulse 66 01/21/21 07:43 Resp 18 01/21/21 07:43 BP 135/79 01/21/21 07:43 Pulse Ox 95 01/21/21 07:43 Oxygen Flow Rate 2 01/17/21 17:53 Body Mass Index 24.6 Const General: cooperative, comfortable and no acute distress Orientation/consciousness: patient oriented x3 [facility] Other: Unremarkable Neck Neck: Yes normal visual inspection Chest Chest palpation & inspection: normal inspection of the chest Resp Auscultation: clear to auscultation bilaterally, crackles and no wheezes Cardio Jugular venous distension: no JVD Palpation: normal PMI Heart sounds: S1 normal heart sound present, S2 normal heart sound present, no gallops, no murmurs and no rubs GI Palpation (GI): Soft to palpation Back/Spine/Pelvis Other: unremarkable Skin General skin exam: no rashes or lesions noted Neuro General: patient oriented x3 Extrem General: Yes no clubbing, cyanosis or edema Psych Mental Status: mental status grossly normal Results Labs and Meds Result diagrams: 01/21/21 06:24 01/21/21 06:24 Lab results: Laboratory Results - last 24 hr 01/20/21 01/20/21 01/21/21 15:21 21:49 03:12 WBC RBC Hgb Hct MCV MCH MCHC RDW Plt Count MPV Absolute Nucleated RBC Nucleated RBC % (auto) PTT (Heparin Protocol) 86.2 H D 63.2 D 32.4 L D Sodium Potassium Chloride Carbon Dioxide Anion Gap BUN Creatinine Estim Creat Clear Calc Estimated GFR Random Glucose Calcium 06/16/21 06/16/21 06:24 06:24 WBC 7.7 RBC 3.57 L Hgb 10.0 L Hct 32.6 L MCV 91.3 MCH 28.0 MCHC 30.7 L RDW 15.9 Plt Count 159 L MPV 11.2 Absolute Nucleated RBC 0.020 H Nucleated RBC % (auto) 0.3 H PTT (Heparin Protocol) Sodium 138 Potassium 4.0 D Chloride 107 Carbon Dioxide 22 Anion Gap 13 BUN 40 H Creatinine 1.41 H Estim Creat Clear Calc 43.8 Estimated GFR 49 Random Glucose 179 H Calcium 8.9 Progress Note: A&P Assessment and plan (1) Paroxysmal atrial flutter: Status: Acute (2) Non-STEMI (non-ST elevated myocardial infarction): Status: Acute (3) Ischemic cardiomyopathy: Status: Acute (4) Status post aorto-coronary artery bypass graft: Status: Acute (5) ICD (implantable cardioverter-defibrillator) in place: Status: Acute Assessment and Plan: In the initial EKG, rhythm appears to be possibly flutter. Currently, he is in sinus rhythm with frequent PACs. We can treat him with long-term a nticoagulation as he is at considerable risk for developing atrial fibrillation. Otherwise echocardiogram with severe LV dysfunction. On review of prior records, there is a history of coronary artery bypass surgery from 2003. Another echocardiogram from January 2020 from his own integration assistant shows an EF of 35-40%. Troponins are clearly in the NSTEMI range. Elevated Cardiac BNP. Empiric diuretics. Lexiscan stress Mibi to be completed. Fall Risk Details Current Medications: Current Medications Generic Name Dose Route Start Last Admin Trade Name Mariuszq PRN Reason Stop Dose Admin Acetaminophen 650 mg 01/18/21 00:31 Acetaminophen 325 Mg Tablet PO Q6H PRN Pain, Mild (Pain Scale 1-3) Aspirin 81 mg 01/18/21 09:00 01/21/21 08:41 Aspirin Enteric Coated 81 Mg Tablet. PO 81 mg DAILY FLORENTIN Administration Atorvastatin Calcium 80 mg 01/18/21 09:00 01/21/21 08:41 Atorvastatin Calcium 80 Mg Tablet PO 80 mg DAILY FLROENTIN Administration Clopidogrel Bisulfate 75 mg 01/18/21 09:00 01/21/21 08:42 Clopidogrel Bisulfate 75 Mg Tablet PO 75 mg DAILY FLORENTIN Administration Docusate Sodium 100 mg 01/18/21 09:00 01/21/21 08:41 Docusate Sodium 100 Mg Capsule PO 100 mg BID FLORENTIN Administration Fluoxetine HCl 20 mg 01/18/21 09:00 01/21/21 08:41 Fluoxetine Hcl 20 Mg Capsule PO 20 mg DAILY FLORENTIN Administration Furosemide 20 mg 01/20/21 13:00 01/21/21 08:42 Furosemide 20 Mg/2 Ml Vial IVPUSH 20 mg BID@0900,1800 FLORENTIN Administration Protocol Heparin Sodium (Porcine) 3,000 unit 01/18/21 00:31 01/20/21 09:30 Heparin Sodium,Porcine 5,000 Unit/Ml Vial 40 unit/kg (3000 unit) 3,000 unit IVPUSH Administration BOLUS PRN 40 unit/kg - Heparin Protocol Heparin Sodium (Porcine) 6,100 unit 01/18/21 00:31 01/21/21 04:03 Heparin Sodium,Porcine 5,000 Unit/Ml Vial 80 unit/kg (6100 unit) 6,100 unit IVPUSH Administration BOLUS PRN 80 unit/kg - Heparin Protocol Heparin Sodium/Sodium Chloride 25,000 unit in 250 mls @ 0 mls/hr 01/17/21 20:00 01/21/21 04:04 IVCONT 8 units/kg/hr .Q0M FLORENTIN 7.26 mls/hr Administration Protocol Per Protocol Magnesium Hydroxide 30 ml 01/18/21 00:31 Milk Of Magnesia 30 Ml Oral.Susp PO DAILY PRN Constipation Metoprolol Succinate 25 mg 01/18/21 09:00 01/21/21 08:41 Metoprolol Succinate Er 25 Mg Tab.Er.24h PO 25 mg DAILY COUNT INCLUDES THE [facility] Administration Protocol Nitroglycerin 0.4 mg 01/18/21 00:31 Nitroglycerin 0.4 Mg Tab.Subl SUBLINGUAL Q5M PRN Chest Pain Sodium Chloride 3 ml 01/18/21 08:00 01/21/21 08:41 0.9 % Sodium Chloride Flush 3 Ml Syringe IVFLUSH Not Given QSHIFT COUNT INCLUDES THE [facility] Time Spent With Patient Time: Total time spent is greater than 50% in coordination of care (as documented) at patient's floor/unit and/or counseling patient: Time with patient: less than 15 minutes Progress Note: Quality Stroke Does the patient have a stroke diagnosis?: No VTE Prior VTE?: No VTE Risk Level:: Medical - moderate - high VTE Device Contraindication: N/A - Device Ordered VTE Drug Contraindication: N/A - Med Ordered Procedures Date of Service Date of Service: 01/21/21
--- NOTE | 2021-01-21 10:50 | HO.PM.IMPN ---
Subjective Subjective Date of Service: 01/21/21 Interval History: seen and examined this AM friend bedside he denies any cp or sob today ROS General - no fevers or chills Cardiovascular - no chest pain Respiratory - no sob Abdominal- no abdominal pain, nausea, vomiting, diarrhea Physical Exam Vital Signs: Vital Signs: Last Vital Signs Temp 97.0 F 01/21/21 07:43 Pulse 66 01/21/21 07:43 Resp 18 01/21/21 07:43 BP 135/79 01/21/21 07:43 Pulse Ox 95 01/21/21 07:43 Oxygen Flow Rate 2 01/17/21 17:53 Body Mass Index 24.6 Const: Other: General - no acute distress, appears comfortable Cardiovascular - regular rate and rhythm, S1-S2 Lungs - clear Abdomen - soft, nontender, no rebound or guarding Extremities - no edema bilaterally Neuro - awake and alert, no focal deficits Objective Data Current Medications Generic Name Dose Route Start Last Admin Trade Name Freq PRN Reason Stop Dose Admin Acetaminophen 650 mg 01/18/21 00:31 Acetaminophen 325 Mg Tablet PO Q6H PRN Pain, Mild (Pain Scale 1-3) Aspirin 81 mg 01/18/21 09:00 01/21/21 08:41 Aspirin Enteric Coated 81 Mg Tablet.Dr PO 81 mg DAILY FLORENTIN Administration Atorvastatin Calcium 80 mg 01/18/21 09:00 01/21/21 08:41 Atorvastatin Calcium 80 Mg Tablet PO 80 mg DAILY FLORENTIN Administration Clopidogrel Bisulfate 75 mg 01/18/21 09:00 01/21/21 08:42 Clopidogrel Bisulfate 75 Mg Tablet PO 75 mg DAILY FLORENTIN Administration Docusate Sodium 100 mg 01/18/21 09:00 01/21/21 08:41 Docusate Sodium 100 Mg Capsule PO 100 mg BID FLORENTIN Administration Fluoxetine HCl 20 mg 01/18/21 09:00 01/21/21 08:41 Fluoxetine Hcl 20 Mg Capsule PO 20 mg DAILY FLORENTIN Administration Furosemide 20 mg 01/20/21 13:00 01/21/21 08:42 Furosemide 20 Mg/2 Ml Vial IVPUSH 20 mg BID@0900,1800 FLORENTIN Administration Protocol Magnesium Hydroxide 30 ml 01/18/21 00:31 Milk Of Magnesia 30 Ml Oral.Susp PO DAILY PRN Constipation Metoprolol Succinate 25 mg 01/18/21 09:00 01/21/21 08:41 Metoprolol Succinate Er 25 Mg Tab.Er.24h PO 25 mg DAILY [facility] Administration Protocol Nitroglycerin 0.4 mg 01/18/21 00:31 Nitroglycerin 0.4 Mg Tab.Subl SUBLINGUAL Q5M PRN Chest Pain Sodium Chloride 3 ml 01/18/21 08:00 01/21/21 08:41 0.9 % Sodium Chloride Flush 3 Ml Syringe IVFLUSH Not Given QSHIFT [facility] Labs CBC & Chem 7: 01/21/21 06:24 01/21/21 06:24 Labs: Laboratory Results - last 24 hr 01/20/21 01/20/21 01/21/21 15:21 21:49 03:12 WBC RBC Hgb Hct MCV MCH MCHC RDW Plt Count MPV Absolute Nucleated RBC Nucleated RBC % (auto) PTT (Heparin Protocol) 86.2 H D 63.2 D 32.4 L D Sodium Potassium Chloride Carbon Dioxide Anion Gap BUN Creatinine Estim Creat Clear Calc Estimated GFR Random Glucose Calcium 01/21/21 01/21/21 06:24 06:24 WBC 7.7 RBC 3.57 L Hgb 10.0 L Hct 32.6 L MCV 91.3 MCH 28.0 MCHC 30.7 L RDW 15.9 Plt Count 159 L MPV 11.2 Absolute Nucleated RBC 0.020 H Nucleated RBC % (auto) 0.3 H PTT (Heparin Protocol) Sodium 138 Potassium 4.0 D Chloride 107 Carbon Dioxide 22 Anion Gap 13 BUN 40 H Creatinine 1.41 H Estim Creat Clear Calc 43.8 Estimated GFR 49 Random Glucose 179 H Calcium 8.9 Quality Stroke Does the patient have a stroke diagnosis?: No VTE Prior VTE?: No VTE Risk Level:: Medical - moderate - high VTE Device Contraindication: N/A - Device Ordered VTE Drug Contraindication: N/A - Med Ordered Assessment and Plan (1) Syncope: Status: Acute (2) Non-STEMI (non-ST elevated myocardial infarction): Status: Acute (3) Atrial fibrillation, new onset: Status: Acute Assessment and Plan: This is a 75 yo M with a PMH of CAD s/p CABG, AICD placement who presents with syncope. He is admitted for further work up 1. NSTEMI 2nd half stress test today on aspirin/bb/statin completed >3 days heparin cardiology on the case - further work up pending stress test results 2. Acute systolic CHF echo showing ef of 15-20% (decreased from outside Echo in January 2020 -- 35-40% at that time) continue IV lasix i/o monitor renal function 3. New onset A. Fib/flutter now in sinus continue metoprolol switch to oral anticoagulation once ischemic work up done 4. Syncope initially felt secondary to cardiac arrhythmia, but device check done -- negative for arrhythmia no further episodes 4. CKD stage 3 SCr at baseline monitor closely while being diuresed 5. HTN toprol 25 6. HLD statin Full Code DVT pptx, Heparin gtt
[2021-01-21 10:51] LABS: PTT Heparin Drip 176.3 SEC (53-77.9)
[2021-01-21 12:00] VITALS: BP 132/67; PULSE 77; RESP 18; TEMP 36.2; O2SAT 94
--- NOTE | 2021-01-21 12:31 | MHC.CM.PN ---
EMR REVIEWED, PER HOSPITALIST PT PLAN DEPENDENT ON ESCHEMIC WORK UP, PT HAD SECOND HALF OF STRESS TEST TODAY AND WILL EITHER TRANSFER [place] [facility] [place] OR D/C HOME TOMORROW 01/22/21. CM DID CONTACT LIAISON FROM [facility] TO VERIFY SERVICES, MESSAGE LEFT AT 12:05PM [phone] AND RECEIVED CALL BACK AT 12:30PM, PER LIAISON PT HAS [facility], CM TO PLACE REFERRAL AND CONT TO FOLLOW FOR D/C NEEDS. D/C PLAN HOME W/[facility]UMP OF [facility] VS [facility] FOR CARDIAC LAB, FAMILY VS BLS TRANSPORT
[2021-01-21 15:35] VITALS: BP 140/75; PULSE 81; RESP 18; TEMP 36.1; O2SAT 98
[2021-01-21] MEDS: 0.9 % Sodium Chloride Flush 3 ML SYRINGE IVFLUSH ×2 (17:46→23:37)
[2021-01-21 19:07] VITALS: BP 117/73; PULSE 67; RESP 16; TEMP 36.3; O2SAT 97
[2021-01-21] MEDS: Apixaban 5 MG TABLET PO (20:14)
[2021-01-22] VITALS: BP 95/58; PULSE 84; RESP 16; TEMP 36.3; O2SAT 97
[2021-01-22 04:00] VITALS: BP 111/61; PULSE 78; RESP 16; TEMP 36.6; O2SAT 95
[2021-01-22 07:12] VITALS: BP 119/68; PULSE 74; RESP 18; TEMP 36.3; O2SAT 96
[2021-01-22 08:54] VITALS: BP 119/68; PULSE 73
[2021-01-22] MEDS: Atorvastatin Calcium 80 MG TABLET PO (08:54)
[2021-01-22] MEDS: Apixaban 5 MG TABLET PO (08:54)
[2021-01-22] MEDS: Metoprolol Succinate ER 25 MG TAB.ER.24H PO (08:54)
[2021-01-22] MEDS: FLUoxetine HCl 20 MG CAPSULE PO (08:55)
[2021-01-22] MEDS: Aspirin Enteric Coated 81 MG TABLET.DR PO (08:55)
[2021-01-22] MEDS: Docusate Sodium 100 MG CAPSULE PO (08:55)
[2021-01-22] MEDS: Furosemide 20 MG/2 ML VIAL IVPUSH (08:55)
[2021-01-22] MEDS: 0.9 % Sodium Chloride Flush 3 ML SYRINGE IVFLUSH (08:55)
--- NOTE | 2021-01-22 09:37 | MHC.CM.PN ---
Addendum entered by Eloina Sanderson RN 01/22/21 11:22: CLARIFICATION PT'S HCP MARIANA CARUSO IS PT'S PARTNER NOT HIS DAUGHTER. Original Note: CM MET W/PT'S DTR/HCP IN PT'S ROOM, PT'S DTR IS CONCERNED WITH PT GOING HOME WITHOUT A SOCIAL WORKER ASSISTANT, PER DTR PT HAD A SOCIAL WORKER ASSISTANT FOR 5MONTHS AND NOW HAS NO ONE, CM CONTACTED LIAISON AT [facility] WHO REPORTED PT HAS 22HRS THROUGH [facility], PER [facility] LIAISON PT'S [facility] MUNITIONS WORKER PRINCE GAMBOA [phone], CM DID CONTACT PRINCE REGARDING AT 9:15AM AND SHE REPORTED PT HAD A MALE SOCIAL WORKER ASSISTANT AND PT DIDN'T WANT A MALE SO HE IS CURRENTLY BETWEEN SOCIAL WORKER ASSISTANT'S. PER PRINCE SHE WILL LOOK FURTHER INTO HIS CASE AND FOLLOW-UP W/CM TODAY. PERFECTO ALSO SPOKE [facility] 9:40AM [phone] AND VERIFIED PT ACTUALLY HAS BID NURSING VISITS. PER HCP/DTR'S REQUEST FOR STR WHILE SOCIAL WORKER ASSISTANT ISSUE IS RESOLVED, A PT EVAL WAS REQUESTED FROM HOSPITALIST. PT HAS BEEN TO [facility] PREVIOUSLY AND REFERRAL HAS BEEN PLACED VIA [employer].
--- NOTE | 2021-01-22 10:51 | PM.PNCARD ---
Subjective Subjective Date of Service: 01/22/21 Principal diagnosis: syncope, NSTEMI, ICD in place Interval history: He states that he feels okay. No specific symptoms. Review of Systems Review of Systems Yes all other systems are reviewed and are negative Cardiovascular: Reports as per HPI, Reports no additional cardiovascular complaints, Denies acrocyanosis, Denies cool extremities, Denies painful fingertips, Denies chest pain, Denies chest pain at rest, Denies diaphoresis, Denies syncope, Denies irregular heart rhythm, Denies claudication, Denies leg edema, Denies lightheadedness, Denies palpitations and Denies dyspnea Respiratory: Denies dyspnea Denies syncope Endocrine: Denies palpitations Physical Exam Vital Signs: Last Vital Signs Temp 97.4 F 01/22/21 07:12 Pulse 73 01/22/21 08:54 Resp 18 01/22/21 07:12 BP 119/68 01/22/21 08:54 Pulse Ox 96 01/22/21 07:12 Oxygen Flow Rate 2 01/17/21 17:53 Body Mass Index 24.6 Const General: cooperative, comfortable and no acute distress Orientation/consciousness: patient oriented x3 [facility] Other: Unremarkable Neck Neck: Yes normal visual inspection Chest Chest palpation & inspection: normal inspection of the chest Resp Auscultation: clear to auscultation bilaterally, crackles and no wheezes Cardio Jugular venous distension: no JVD Palpation: normal PMI Heart sounds: S1 normal heart sound present, S2 normal heart sound present, no gallops, no murmurs and no rubs GI Palpation (GI): Soft to palpation Back/Spine/Pelvis Other: unremarkable Skin General skin exam: no rashes or lesions noted Neuro General: patient oriented x3 Extrem General: Yes no clubbing, cyanosis or edema Psych Mental Status: mental status grossly normal Results Labs and Meds Result diagrams: 01/21/21 06:24 01/21/21 06:24 Lab results: Laboratory Results - last 24 hr 01/21/21 09:53 PTT (Heparin Protocol) 176.3 H* D Imaging Radiologist's impression: Impressions Myocardial Perfusion Scan Nuc Med 01/20/21 10:55 Impression: 1. 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 Gated LVEF is 25% 3. Transient ischemic dilatation present EKG nondiagnostic for ischemia Progress Note: A&P Assessment and plan (1) Paroxysmal atrial flutter: Status: Acute (2) Non-STEMI (non-ST elevated myocardial infarction): Status: Acute (3) Ischemic cardiomyopathy: Status: Acute (4) Status post aorto-coronary artery bypass graft: Status: Acute (5) ICD (implantable cardioverter-defibrillator) in place: Status: Acute Assessment and Plan: In the initial EKG, rhythm appears to be possibly flutter. Currently, he is in sinus rhythm with frequent PACs. We can treat him with long-term anticoagulation as he is at considerable risk for developing atrial fibrillation. Otherwise echocardiogram with severe LV dysfunction. On review of prior records, there is a history of coronary artery bypass surgery from 2003. 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 Troponins are clearly in the NSTEMI range. Elevated Cardiac BNP. Empiric diuretics. Stress perfusion findings noted. With medically treat for underlying CAD and he is already on beta-blockers and high-dose statins. If he can regularly follow up with his tumbler dyeing machine operator , then could use Entresto as outpt. Fall Risk Details Current Medications: Current Medications Generic Name Dose Route Start Last Admin Trade Name Freq PRN Reason Stop Dose Admin Acetaminophen 650 mg 01/18/21 00:31 Acetaminophen 325 Mg Tablet PO Q6H PRN Pain, Mild (Pain Scale 1-3) Apixaban 5 mg 01/21/21 21:00 01/22/21 08:54 Apixaban 5 Mg Tablet PO 5 mg BID FLORENTIN Administration Aspirin 81 mg 01/18/21 09:00 01/22/21 08:55 Aspirin Enteric Coated 81 Mg Tablet. PO 81 mg DAILY FLORENTIN Administration Atorvastatin Calcium 80 mg 01/18/21 09:00 01/22/21 08:54 Atorvastatin Calcium 80 Mg Tablet PO 80 mg DAILY FLORENTIN Administration Docusate Sodium 100 mg 01/18/21 09:00 01/22/21 08:55 Docusate Sodium 100 Mg Capsule PO 100 mg BID FLORENTIN Administration Fluoxetine HCl 20 mg 01/18/21 09:00 01/22/21 08:55 Fluoxetine Hcl 20 Mg Capsule PO 20 mg DAILY FLORENTIN Administration Furosemide 20 mg 01/20/21 13:00 01/22/21 08:55 Furosemide 20 Mg/2 Ml Vial IVPUSH 20 mg BID@0900,1800 FLORENTIN Administration Protocol Magnesium Hydroxide 30 ml 01/18/21 00:31 Milk Of Magnesia 30 Ml Oral.Susp PO DAILY PRN Constipation Metoprolol Succinate 25 mg 01/18/21 09:00 01/22/21 08:54 Metoprolol Succinate Er 25 Mg Tab.Er.24h PO 25 mg DAILY FLORENTIN Administration Protocol Nitroglycerin 0.4 mg 01/18/21 00:31 Nitroglycerin 0.4 Mg Tab.Subl SUBLINGUAL Q5M PRN Chest Pain Sodium Chloride 3 ml 01/18/21 08:00 01/22/21 08:55 0.9 % Sodium Chloride Flush 3 Ml Syringe IVFLUSH 3 ml QSHIFT FLORENTIN Administration Time Spent With Patient Time: Total time spent is greater than 50% in coordination of care (as documented) at patient's floor/unit and/or counseling patient: Time with patient: less than 15 minutes Progress Note: Quality Stroke Does the patient have a stroke diagnosis?: No Procedures Date of Service Date of Service: 01/22/21
[2021-01-22 11:20] VITALS: BP 109/59; PULSE 64; RESP 18; TEMP 36.3; O2SAT 2
[2021-01-22 11:45] VITALS: BP 109/59; PULSE 64
[2021-01-22 12:15] LABS: COVID-19 Test Negative (Negative); IDNOW Serial# 9DD0AD1C
--- NOTE | 2021-01-22 13:06 | PM.DS ---
DS: Providers Provider Date of Service: 01/22/21 Date of admission: 01/18/21 00:31 Primary care physician: Pb Gallo MD Consults: 01/18/21 00:31 Consult to Cardiology Routine Consulting Provider: Justyn Benson Reason for consultation: NSTEMI DS: Diagnosis Discharge Diagnosis (1) Non-STEMI (non-ST elevated myocardial infarction): Status: Acute (2) Acute systolic CHF (congestive heart failure): Status: Acute (3) Paroxysmal atrial flutter: Status: Acute (4) Ischemic cardiomyopathy: Status: Acute (5) Status post aorto-coronary artery bypass graft: Status: Acute (6) ICD (implantable cardioverter-defibrillator) in place: Status: Acute DS: Medications Discharge Medications Home Medications: Home Medications Medication Instructions Recorded Confirmed aspirin 1 tab PO QAM 01/17/21 01/17/21 fluoxetine 1 cap PO QAM 01/17/21 01/17/21 metoprolol succinate 25 mg PO DAILY 01/17/21 01/17/21 rosuvastatin 1 tab PO QAM 01/17/21 01/17/21 Previous Rx's Medication Instructions Recorded apixaban [Eliquis] 5 mg PO BID #60 tab 01/22/21 furosemide [Lasix] 40 mg PO DAILY #30 tab 01/22/21 DS: Summary Hospital Course Hospital Course: Patient presented to the hospital with a syncopal episode and based upon presenting complaints it was initially felt that his syncope may have been related to misfiring of his AICD. He was also noted to have elevated troponins and new onset AFib/flutter. He was started on treatment with IV heparin for NSTEMI as his high sensitivity troponins peaked to 900. He was also treated for acute systolic heart failure with IV diuretics. 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 He subsequently underwent inpatient stress test which showed Impression: 1. 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 Gated LVEF is 25% 3. Transient ischemic dilatation present EKG nondiagnostic for ischemia He was managed medically for his NSTEMI and received 72 hours of heparin drip. He was already on a high intensity statin and a beta-amado which were continued. He was on dual antiplatelet with aspirin and Plavix. Due to his newly diagnosed paroxysmal atrial fibrillation, Plavix was discontinued and he has been initiated on Eliquis 5 mg twice daily. He needs to follow up with his primary grain elevator superintendent and should he want with this Entresto can be initiated as an outpatient. Time Spent with Patient Time attestation: Total time spent providing and/or coordinating discharge services: Discharge coordination time: Greater than 30 minutes Quality: Stroke Does the patient have a stroke diagnosis?: No Physical Exam Vital Signs: Vital Signs: Last Vital Signs Temp 97.3 F 01/22/21 11:20 Pulse 64 01/22/21 11:45 Resp 18 01/22/21 11:20 BP 109/59 L 01/22/21 11:45 Pulse Ox 2 L 01/22/21 11:20 Oxygen Flow Rate 2 01/17/21 17:53 Body Mass Index 24.6 Const: Other: General - no acute distress, appears comfortable Cardiovascular - regular rate and rhythm, S1-S2, minimal edema Lungs - clear Abdomen - soft, nontender, no rebound or guarding Extremities - no edema bilaterally Neuro - awake and alert, no focal deficits DS: Data Data Completed and Pending Labs on day of discharge: Laboratory Results - last 24 hr 01/22/21 11:30 COVID-19 ([facility]) Negative COVID-19 Clin Com See Note Discharge Plan Discharge Patient Disposition: Xfer SNF Discharge Diagnosis: NSTEMI, PAF Referrals: [facility] [Other] - 1 Week (RESUMPTION OF TWICE DAILY NURSING VISITS) [facility] [Outside] - 1 Day (SHORT TERM REHAB) Jung Young MD [Physician] - 2 Weeks (call office for appt) Pb Gallo MD [Primary Care Provider] - 1 Week Discharge Medications: New Eliquis 5 mg Tablet 5 mg PO BID Qty: 60 RF: 0 furosemide [Lasix] 40 mg tablet 40 mg PO DAILY Qty: 30 RF: 0 Continued aspirin 81 mg tablet,delayed release (DR/EC) 1 tab PO QAM RF: 0 fluoxetine 20 mg capsule 1 cap PO QAM RF: 0 rosuvastatin 20 mg tablet 1 tab PO QAM RF: 0 metoprolol succinate 25 mg Capsule,Sprinkle,Er 24hr 25 mg PO DAILY RF: 0 Discontinued clopidogrel 75 mg tablet 1 tab PO QAM RF: 0 Discharge Orders: Discharge Order (Routine); Ordered 01/22/21 Ordered By: Reese Long Diet: advance to usual diet, low fat, low cholesterol and low salt diet Activity on Discharge: As tolerated Stand Alone Forms: Patient Portal Discharge page Care Plan Goals: To stay healthy and out of the hospital. Health Concerns: NSTEMI, CAD, Systolic CHF, New onset PAF Plan of Treatment: Continue metoprolol, crestor, aspirin. Start lasix and Eliquis. Stop plavix. Follow up with Dr. Young (cardiology) Assessment: 75 yo who presented with syncope and diagnosed with NSTEMI/New onset PAF, Sysotlic CHF. Medically treated. Will be d/c to SNF. Needs to f/u with his primary grain elevator superintendent for further management.
--- NOTE | 2021-01-22 15:24 | MHC.CM.PN ---
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 CM MET W/PT REGARDING THIS ISSUE AND PT REPORTS HE HAS KNOWN HIS HCP/GF FOR 14 YRS AND SHE IS VERY HELPFUL AND CARES ABOUT HIM AND WAS DISINTERESTED IN SPEAKING TO HER ABOUT HIS ROTATIONAL MOULDING OPERATOR ISSUES. [facility] TO FOLLOW-UP W/PT AFTER D/C. IMM 01/22/21, PT DISCHARGING TODAY TO [facility] FOR STR, PT O2 DEPENDENT ON 2-3L, [facility] FOR BLS TRANSPORT.
== END 2021-01-22 15:16 | disposition skilled nursing facility (03) | DRG 280 ==
LOC: HO.ED 23:32 → HO.EDOVER 01-18 00:48 → HO.S3 01-19 12:19
PROVIDERS: Internal Medicine; Nurse Practitioner Family; Admitting Provider Hospitalist; Emergency Provider Internal Medicine; PCP Internal Medicine Geriatric Medicine; Visit Provider Family Medicine
DX: I21.4 Non-ST elevation (NSTEMI) myocardial infarction (principal); I50.21 Acute systolic (congestive) heart failure; I13.0 Hypertensive heart and chronic kidney disease with heart failure and stage 1 through stage 4 chronic kidney disease, or unspecified chronic kidney disease; E78.5 Hyperlipidemia, unspecified; I25.5 Ischemic cardiomyopathy; N18.30 Chronic kidney disease, stage 3 unspecified; Z20.822 Contact with and (suspected) exposure to COVID-19; I48.0 Paroxysmal atrial fibrillation; Z95.1 Presence of aortocoronary bypass graft; I25.10 Atherosclerotic heart disease of native coronary artery without angina pectoris; Z95.810 Presence of automatic (implantable) cardiac defibrillator; Z79.01 Long term (current) use of anticoagulants; Z79.82 Long term (current) use of aspirin; Z79.899 Other long term (current) drug therapy
CPT/HCPCS: 36415; 70450; 71045; 78452; 80048; 80076; 81001; 81003; 83735; 83880; 84484; 85025; 85027; 85610; 85730; 87086; 87635; 93005; 93017; 93306; 97162; 99285; A9500; J0280; J1940; J2785; Q9957

== ENCOUNTER 2021-01-31 14:20 | Emergency (ER) | payer MEDICARE, SELFPAY ==
--- NOTE | 2021-01-31 14:25 | ED.CPR ---
HPI - CPR General Chief Complaint: Cardiac Arrest/CPR Stated Complaint: Code Time Seen by Provider: 01/31/21 14:25 Source: EMS and old records reviewed Mode of arrival: EMS Limitations: other (unresponsive CPR on arrival) History of Present Illness MD complaint: found unresponsive Onset (ago): hour(s) (the call was 115pm) Timing confirmed by: caregiver Place: [facility] Bystander CPR performed: Yes AED applied by bystander/banquet pilot: Yes Shock advised: Yes Number of shocks delivered: 1 Initial findings in the field: unresponsive, no pulse and VTACH/VFIB (one episode of vtach) ROSC in the field: Yes (for approx 10 minutes was paced in the field as well for HR 46) Associated injuries: Yes (puncture wound noted in chest by ED staff after removing EMS equipment) Known history of: CAD, AR and AICD Treatments prior to arrival: BMV, other airway device (idalia), chest compressions, defibrillated shocks # (1), epinephrine mgs # (8) and amiodarone Related Data Home Medications Medication Instructions Recorded Confirmed aspirin 1 tab PO QAM 01/17/21 01/17/21 fluoxetine 1 cap PO QAM 01/17/21 01/17/21 metoprolol succinate 25 mg PO DAILY 01/17/21 01/17/21 rosuvastatin 1 tab PO QAM 01/17/21 01/17/21 Previous Rx's Medication Instructions Recorded apixaban [Eliquis] 5 mg PO BID #60 tab 01/22/21 furosemide [Lasix] 40 mg PO DAILY #30 tab 01/22/21 Allergies Allergy/AdvReac Type Severity Reaction Status Date / Time No Known Allergies Allergy Unverified 04/24/20 15:47 [No Known Allergies*] Review of Systems Review of Systems: ROS unable to be obtained due to CPR and patient is unresponsive REPLACED BY [facility] Past Medical History Attestation statement: The following information was validated with the patient. 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 Social History Social History Household Members: None Housing: Apartment Do you presently have visiting nurse or other home services: Yes (chemical dependency counselor) Alcohol intake: never Patient Tobacco Use Status: Former Tobacco user Tobacco use type: Cigarette e-Cigarette/Vaping Use: Never Used Second Hand Smoke Exposure: No Advance Directives: Yes Advance Directives on File: Yes Advance Directives Date on File: 01/18/21 service: No Current occupational status: retired Physical Exam Vital Signs: Vital Signs: Last Vital Signs Temp 0 F L 01/31/21 14:36 Pulse 0 L 01/31/21 14:36 Resp 0 L 01/31/21 14:36 BP 00/00 L 01/31/21 14:36 Pulse Ox 0 L 01/31/21 14:36 Body Mass Index 27.0 Appearance: active CPR, unresponsive. Eyes: pupils fixed and dilated R 3mm L 4mm ENT: Pharynx copious emesis light brown noted Neck: Normal inspection. Neck supple. CVS: asystole on the monitor, no pulses, mottled, no heart sounds compressions noted Chest: just left to midline lower sternum is 0.5cm puncture wound linear in nature no bleeding from site Respiratory: no spontaneous respirations, being bagged with idalia airway Abdomen: Soft and no trauma noted Skin: mottled pale cold to touch Extremities: No lower extremity edema. IO site on R and L anterior shins Neuro: no response to pain, fixed pupils. Course Course Course Narrative: This was a code in a male who was just admitted for CHF, NSTEMI there was no concern for trauma / overdose reported by EMS to ED staff and it was deemed patient from natural causes. Resuscitative efforts were stopped at 1420. After removing idalia airway, IO, cardiac leads/pads a 0.5cm puncture wound in the chest was noted, EMS was still present in the room and stated that they noted on arrival to the SNF this wound; the wound was not reported on arrival to us and SNF staff could not tell EMS why this would be there, at this time I am calling the ME no other obvious wounds noted. ME called back due to large call volumes at 424pm - Ritchie discussed with Ritchie from CME - images of the wound were sent to the ME and at this time they are not concerned for trauma after review of images ME Devyn Lackey Procedures Procedure Narrative Procedure Narrative: 1420 bedside ECHO no cardiac activity noted - cardiac standstill MDM - Cardiac Arrest/CPR MDM Narrative Medical decision making narrative: 75 yo male just admitted this month for CHF, NSTEMI, syncope ?AICD firing, PVD, afib on eliquis comes in with 1+ hour of CPR - ROSC x 1 in the field which was approx 20 minutes prior to ED arrival at this time given asystole on the monitor, cardiac standstill, no heart sounds, no neuro response, fixed and dilated pupils, cardiac resuscitative efforts were stopped at 1420. Discharge Plan Discharge Clinical Impression: Cardiac arrest Patient Disposition: Prescriptions: No Action aspirin 81 mg tablet,delayed release (DR/EC) 1 tab PO QAM RF: 0 fluoxetine 20 mg capsule 1 cap PO QAM RF: 0 rosuvastatin 20 mg tablet 1 tab PO QAM RF: 0 metoprolol succinate 25 mg Capsule,Sprinkle,Er 24hr 25 mg PO DAILY RF: 0 Eliquis 5 mg Tablet 5 mg PO BID Qty: 60 RF: 0 furosemide [Lasix] 40 mg tablet 40 mg PO DAILY Qty: 30 RF: 0
[2021-01-31 14:36] VITALS: BP 00/00; PULSE 0; RESP 0; TEMP -17.7; TEMP 0; O2SAT 0; BMI 27.0
--- NOTE | 2021-01-31 14:44 | PC.NURSE ---
DR CHAMORRO AT BEDSIDE PT ARRIVED RESUSCITATION, CPR IN PROGRESS DR CHAMORRO CHECKED FOR CARDIAC ACTIVITY, PT HAD BEEN GETTING CPR FOR ABOUT AN HOUR 8 ROUNDS OF DIANELYS BREWSTER CALLED AT 1420, ORIGINALLY NOT AN ME CASE, HOWEVER AFTER REMOVING PADS FROM PATIENT AN HOLE NOTED IN PATIENTS CHEST, DR CHAMORRO WILL NOTIFY ME. DUE TO DISCOVERY OF HOLE/PUNCTURE APPEARING WOUND IN CHEST, PT DID HAVE AN IO REMOVED FROM RIGHT FEMUR PRIOR TO THIS DISCOVERY, ALSO IO ATTEMPT IN LEFT FEMUR BY EMS PRIOR TO ARRIVAL. PT WITH LMA IN PLACE WHICH WAS ALSO REMOVED PRIOR TO DISCOVERY.
--- NOTE | 2021-01-31 15:23 | PC.NURSE ---
CASE DECLINED BY [facility], REP CHIVO CASE# [id number]
--- NOTE | 2021-01-31 17:36 | PC.NURSE ---
ME declined case
--- NOTE | 2021-02-01 13:25 | PC.NURSE ---
Received a phone call from Louisa Adames stating she is the above named patient's daughter. Her contact information is [phone]
--- NOTE | 2021-02-02 16:19 | PC.NURSE ---
SPOKE TO PT GRANDAUGTER MALACHI [facility] HAD A MALE STATING HE WAS HIS NEPHEW AND WANTED INFORMATION. MALACHI STATED SHE HAS NO COUSINS ASKED THAT WE NOT GIVE OUT INFORMATION TO ANYONE ELSE OTHER THAN TONY OR HERSELF.
== END 2021-01-31 18:08 | disposition expired ==
PROVIDERS: Emergency Provider Emergency Medicine; PCP Internal Medicine Geriatric Medicine
DX: I46.9 Cardiac arrest, cause unspecified (principal); I21.4 Non-ST elevation (NSTEMI) myocardial infarction; I48.91 Unspecified atrial fibrillation; I11.0 Hypertensive heart disease with heart failure; I50.9 Heart failure, unspecified; I25.10 Atherosclerotic heart disease of native coronary artery without angina pectoris; J44.9 Chronic obstructive pulmonary disease, unspecified; Z79.01 Long term (current) use of anticoagulants; Z79.82 Long term (current) use of aspirin; Z79.899 Other long term (current) drug therapy; Z95.810 Presence of automatic (implantable) cardiac defibrillator; Z95.1 Presence of aortocoronary bypass graft
CPT/HCPCS: 99282; 99284